=== PATIENT | female | born 1935 | race Caucasian/White ===

== ENCOUNTER 2022-04-09 20:35 | Inpatient (IN) | payer MEDICARE, OTHER, SELFPAY ==
--- NOTE | 2022-04-09 20:46 | ECG_ITS ---
[facility] Test Date: 2022-04-09 Pat Name: Lauren Peguero Department: Room: ICU10 Gender: Female Case Planner: : 1935 Requested By: Eladio Cordova Order Number: [id number] Acuña MD: Kenny Palumbo M.D. Measurements Intervals [place] Rate: 154 P: GA: QRS: -45 QRSD: 142 T: 133 QT: 318 QTc: 509 Interpretive Statements ATRIAL FIBRILLATION WITH RAPID VENTRICULAR RESPONSE LEFT AXIS DEVIATION [QRS AXIS < -30] LEFT BUNDLE BRANCH BLOCK [120+ ms QRS DURATION, 80+ ms Q/S IN V1/V2, 85+ ms R IN I/aVL/V5/V6] No previous ECG available for comparison Electronically Signed On 04-11-2022 22:08:21 CDT by Kenny Palumbo M.D. [id number]
--- NOTE | 2022-04-09 20:46 | ECG_ITS ---
[facility] Test Date: 2022-04-09 Pat Name: Lauren Peguero Department: Room: Gender: Female Aperture Mask Etcher: : 1935 Requested By: Eladio Cordova Order Number: [id number] Domenico MD: Kenny Palumbo M.D. Measurements Intervals [place] Rate: 154 P: ND: QRS: -45 QRSD: 142 T: 133 QT: 318 QTc: 509 Interpretive Statements ATRIAL FIBRILLATION WITH RAPID VENTRICULAR RESPONSE LEFT AXIS DEVIATION [QRS AXIS < -30] LEFT BUNDLE BRANCH BLOCK [120+ ms QRS DURATION, 80+ ms Q/S IN V1/V2, 85+ ms R IN I/aVL/V5/V6] CRITICAL TEST RESULT No previous ECG available for comparison Electronically Signed On 04-11-2022 22:04:21 CDT by Kenny Palumbo M.D. [id number] f
--- NOTE | 2022-04-09 20:48 | XRR_ITS ---
PROCEDURE INFORMATION: Exam: XR Chest Exam date and time: 04/09/2022 9:41 PM Age: 87 years old Clinical indication: Shortness of breath; Patient HX: C/O SOB. History of covid in February. TECHNIQUE: Imaging protocol: Radiologic exam of the chest. Views: 1 view. COMPARISON: No relevant prior studies available. FINDINGS: Lungs: The upper lobes are clear. Pleural spaces: See Heart/Mediastinum finding. Heart/Mediastinum: Moderate to large bilateral symmetric pleural effusions obscure the diaphragms and heart borders. Bones/joints: Incidental right shoulder arthroplasty. XR/XR chest 1V portable [id number] IMPRESSION: Bilateral moderate to large pleural effusions.
[2022-04-09 20:54] VITALS: BP 122/75; PULSE 154; RESP 34; TEMP 36.6; O2SAT 78; BMI 33.5
[2022-04-09 20:57] VITALS: O2SAT 95
[2022-04-09 20:58] LABS: Basophils % 0.1 %; Eosinophils % 0.2 %; Hematocrit 38.5 % (37.0-47.0); Hemoglobin 11.8 g/dL (11.5-15.3); Lymphocytes # 1.2 10^3/uL (0.8-4.8); Lymphocytes % 7.2 %; Mean Corpuscular HGB Conc 30.6 g/dL (30.0-36.0); Mean Corpuscular Hemoglobin 29.6 pg (28.0-34.0); Mean Corpuscular Volume 96.7 fl (81-99); Mean Platelet Volume 10.6 fL (7.4-10.4); Monocytes # 4.9 10^3/uL (0.2-0.9); Monocytes % 28.6 %; Neutrophils # 10.66 10^3/uL (1.8-7.7); Neutrophils % 61.9 %; Nucleated Red Blood Cells % 0 %; Platelet Count 341 10^3/cmm (130-400); Red Blood Count 3.98 10^6/uL (4.1-5.3); Red Cell Distribution Width 13.8 % (12.1-15.1); White Blood Count 17.3 10^3/uL (4.0-10.0)
[2022-04-09 21:10] LABS: D Dimer 3.73 ug/mIFEU (0-0.59)
[2022-04-09 21:11] LABS: ABG PH Result 7.31 (7.35-7.45); Arterial Blood Gas Hematocrit 38.1 % (37-47); Base Excess ABG 3.8 mmol/L (-2.0-2.0); Blood Gas Allen Test Pos; Blood Gas Sample Type Arterial; Carboxyhemoglobin 0.1 %THgb (0.4-20.1); HCO3 ABG 31.6 mmol/L (22-26); HGB O2 Sat 93.9 % (95-100); Methemoglobin 0.8 % (0.4-1.5); PO2 ABG 94.3 mmHg (80.0-100.0); Total Hemoglobin 12.4 g/dL (12-16)
[2022-04-09 21:12] LABS: Blood Gas Operator Identificat MONRO; Blood Gas Sample Site Radial, right; Oxygen Device NRB
[2022-04-09] MEDS: dilTIAZem 5 mg/mL SDV 5 mL 15 MG IVP (21:12)
[2022-04-09] MEDS: sodium chloride 0.9% 500 ML 999 ML IV (21:12)
[2022-04-09 21:13] LABS: ABG PCO2 62.3 mmHg (35-45)
[2022-04-09 21:15] LABS: Lactic Sepsis W/Reflex 1.4 mmol/L (0.5-2.2)
[2022-04-09 21:18] LABS: Blood Urea Nitrogen 19 mg/dL (8-23); Calcium 8.4 mg/dL (8.5-10.5); Carbon Dioxide 28 mmol/L (22-29); Chloride 93 mmol/L (98-107); Glucose 229 mg/dL (65-115); Magnesium 2.1 mg/dL (1.7-2.3); Osmolality Calculated 288 mOsm/kg (285-295); Sodium 134 mmol/L (136-145)
[2022-04-09 21:19] LABS: Anion Gap 17.3 (5-19); Potassium 4.3 mmol/L (3.5-5.1); Troponin(5th) Baseline 16 ng/L (0-10)
[2022-04-09 21:20] VITALS: PULSE 120; RESP 30; O2SAT 95
[2022-04-09 21:26] LABS: NT Pro B Type Natriuretic Pept 2640 pg/mL (0-450)
--- NOTE | 2022-04-09 21:59 | CTR_ITS ---
PROCEDURE INFORMATION: Exam: CTA Chest With Contrast Exam date and time: 04/09/2022 11:51 PM Age: 87 years old Clinical indication: Shortness of breath; Additional info: SOB TECHNIQUE: Imaging protocol: Computed tomographic angiography of the chest with contrast. 3D rendering (Not supervised by radiologist): MIP and/or 3D reconstructed images were created by the technologist. Radiation optimization: All CT scans at this facility use at least one of these dose optimization techniques: automated exposure control; mA and/or kV adjustment per patient size (includes targeted exams where dose is matched to clinical indication); or iterative reconstruction. Contrast material: OMNIPAQUE 350; Contrast volume: 95 ml; Contrast route: INTRAVENOUS (IV); COMPARISON: CR (CHEST, ) 04/09/2022 9:41 PM RADIATION DOSE METRICS: Total DLP (mGy-cm): 561.4 FINDINGS: Pulmonary arteries: No pulmonary embolus or aortic dissection. Aorta: Calcification of the thoracic aorta and/or great vessels consistent with atherosclerotic vessel disease. Lungs: Compressive atelectasis in both lower lobes and portions of the right middle lobe. Pleural spaces: Moderate bilateral pleural fluid collections. Bilateral apical pleural and/or parenchymal scarring. Heart: Mild to moderate pericardial fluid and/or thickening. Lymph nodes: Calcified right hilar nodes and/or mediastinal nodes and/or lung granulomas consistent with old granulomatous disease. Bones/joints: Possible ankylosing spondylitis with bridging lateral vertebral body ossifications and ossification of the supraspinous ligament. Soft tissues: Examination is limited by artifact from one or both arms by the patient's side. CT/CT angio chest PE protcl [id number] IMPRESSION: 1. Moderate bilateral pleural fluid collections. 2. Mild to moderate pericardial fluid and/or thickening. 3. Compressive atelectasis in both lower lobes and portions of the right middle lobe. 4. No pulmonary embolus or aortic dissection.
[2022-04-09 23:27] LABS: Troponin 5 2HR 17.16 ng/L (0-10); Troponin 5 2HR Delta 1.16 ABS# (0-10)
--- NOTE | 2022-04-09 23:43 | W.ED.SOB ---
HPI - SOB/Dyspnea General: Chief Complaint: Shortness of Breath/Dyspnea Stated Complaint: SOB Time Seen by Provider: 04/09/22 20:43 Source: patient and EMS History of Present Illness: HPI Narrative: 87-year-old female presenting with shortness of breath lasting for the last 2 days. It is progressively worsened. She has had a cough. Nonproductive. She does not know that she has had a fever. She denies any chest pain. She has a history of atrial fibrillation. No history of coronary disease. MD elicited complaint: shortness of breath Pertinent past history: other Onset (ago): day(s) Context: recent illness Timing: progressively worsening Severity: severe Exacerbating factors: lying flat and exertion Relieving factors: nothing Associated symptoms: Reports cough, diaphoresis and nausea; Deny abdominal pain, chest congestion or chest pain Treatment prior to arrival: oxygen and bronchodilator Review of Systems Const: Reports: diaphoresis Eyes: Denies: change in vision ENMT: Denies: throat pain Card: Denies: chest pain Resp: Denies: chest congestion GI: Reports: nausea; Denies: abdominal pain Physical Exam Const: GENERAL APPEARANCE: in distress, ill appearing and diaphoretic HENMT: COMMON NORMALS: normocephalic, atraumatic and Normal external nose present HEAD & SCALP: normocephalic and atraumatic FACE & SINUS: normal facial exam and face symmetric NOSE: Normal external nose present Eye: COMMON NORMALS: Equal, round and reactive pupils present and EOMs intact bilaterally PUPIL: Yes Equal, round and reactive pupils present Chest: CHEST: Yes Symmetrical chest wall rise Resp: EFFORT & INSPECTION: Yes respiratory distress and Yes labored AUSCULTATION: rales, rhonchi and diminished lung sounds Cardio: RATE: tachycardic RHYTHM: abnormal rhythm irregularly irregular GI: COMMON NORMALS: Normal to inspection, nondistended, normoactive bowel sounds present and Soft to palpation PALPATION: Yes Soft to palpation Extremity: GENERAL: Yes edema Neuro: SHAN COMA SCALE: document GCS findings Shan coma scale eye opening: Spontaneous [place] coma scale verbal response: Orientated Shan coma scale motor response: Obey commands [place] coma scale total score: 15 Psych: COMMON NORMALS: cooperative Course Vital Signs: Vital signs: Vital Signs Temperature 97.8 F 04/09/22 20:54 Pulse Rate 114 H 04/10/22 00:10 Respiratory Rate 34 H 04/09/22 20:54 Blood Pressure 122/75 04/09/22 20:54 Pulse Oximetry 94 04/10/22 00:10 Oxygen Delivery Me thod 04/10/22 00:59 Oxygen Flow Rate 15 04/09/22 20:57 Fraction of Inspir ed Oxygen 80 04/10/22 00:10 MDM - SOB/Dyspnea Medical Decision Making 87-year-old female in hypoxic respiratory failure on arrival. She was placed on BiPAP. Initial blood gas shows respiratory acidosis with a high PCO2. Patient experienced immediate improvement after placement on BiPAP. Her heart rate was also in the 160s. She is placed on a diltiazem drip with improvement in her rapid ventricular response to the 1 teens. Her white blood cell count is 17.3. Hemoglobin 11.8. Her creatinine is 1. Her chest x-ray shows significant bilateral pleural effusions and cardiomegaly. Her D-dimer is significantly elevated. CTA of the chest reveals no pulmonary emboli. It does show pleural effusions, compressive atelectasis, and a likely pericardial effusion. She will go to the ICU. Lab Data : 04/09/22 20:50 04/09/22 20:50 Labs/Radiology: Radiology Impressions Chest X-Ray 04/09/22 20:48 IMPRESSION: Bilateral moderate to large pleural effusions. Chest CTA 04/09/22 21:59 IMPRESSION: 1. Moderate bilateral pleural fluid collections. 2. Mild to moderate pericardial fluid and/or thickening. 3. Compressive atelectasis in both lower lobes and portions of the right middle lobe. 4. No pulmonary embolus or aortic dissection. Laboratory Results WBC 17.3 10^3/uL (4.0-10.0) H 04/09/22 20:50 RBC 3.98 10^6/uL (4.1-5.3) L 04/09/22 20:50 Hgb 11.8 g/dL (11.5-15.3) 04/09/22 20:50 Hct 38.5 % (37.0-47.0) 04/09/22 20:50 MCV 96.7 fl (81-99) 04/09/22 20:50 MCH 29.6 pg (28.0-34.0) 04/09/22 20:50 MCHC 30.6 g/dL (30.0-36.0) 04/09/22 20:50 RDW 13.8 % (12.1-15.1) 04/09/22 20:50 Plt Count 341 10^3/cmm (130-400) 04/09/22 20:50 MPV 10.6 fL (7.4-10.4) H 04/09/22 20:50 Neut % (Auto) 61.9 % 04/09/22 20:50 Lymph % (Auto) 7.2 % 04/09/22 20:50 [place] % (Auto) 28.6 % 04/09/22 20:50 Eos % (Auto) 0.2 % 04/09/22 20:50 Baso % (Auto) 0.1 % 04/09/22 20:50 Neut # (Auto) 10.66 10^3/uL (1.8-7.7) H 04/09/22 20:50 Lymph # (Auto) 1.2 10^3/uL (0.8-4.8) 04/09/22 20:50 [place] # (Auto) 4.9 10^3/uL (0.2-0.9) H 04/09/22 20:50 Eos # (Auto) 0.0 10^3/uL (0.0-0.8) 04/09/22 20:50 Baso # (Auto) 0.0 10^3/uL (0.0-0.1) 04/09/22 20:50 Nucleated RBC % (auto) 0 % 04/09/22 20:50 Nucleated RBCs # 0.0 /100WBC 04/09/22 20:50 D-Dimer 3.73 ug/mIFEU (0-0.59) H 04/09/22 20:50 Specimen Type Arterial 04/09/22 20:48 Sample Site Radial, right 04/09/22 20:48 ABG pH 7.31 (7.35-7.45) L 04/09/22 20:48 ABG pCO2 62.3 mmHg (35-45) H* 04/09/22 20:48 ABG pO2 94.3 mmHg (80.0-100.0) 04/09/22 20:48 ABG HCO3 31.6 mmol/L (22-26) H 04/09/22 20:48 ABG Base Excess 3.8 mmol/L (-2.0-2.0) H 04/09/22 20:48 Damian Test Pos 04/09/22 20:48 Hematocrit 38.1 % (37-47) 04/09/22 20:48 Hgb O2 Saturation 93.9 % (95-100) L 04/09/22 20:48 Carboxyhemoglobin 0.1 %THgb (0.4-20.1) L 04/09/22 20:48 Methemoglobin 0.8 % (0.4-1.5) 04/09/22 20:48 Total Hemoglobin 12.4 g/dL (12-16) 04/09/22 20:48 O2 Delivery Device Nrb 04/09/22 20:48 O2 Liters/Min 15.0 % 04/09/22 20:48 FiO2 100.0 % 04/09/22 20:48 Head Of Stock ID Monro 04/09/22 20:48 Sodium 134 mmol/L (136-145) L 04/09/22 20:50 Potassium 4.3 mmol/L (3.5-5.1) 04/09/22 20:50 Chloride 93 mmol/L (98-107) L 04/09/22 20:50 Carbon Dioxide 28 mmol/L (22-29) 04/09/22 20:50 Anion Gap 17.3 (5-19) 04/09/22 20:50 BUN 19 mg/dL (8-23) 04/09/22 20:50 Creatinine 1.0 mg/dL (0.5-0.9) H 04/09/22 20:50 GFR Calculation Not Reportable 04/09/22 20:50 Glucose 229 mg/dL (65-115) H 04/09/22 20:50 Calculated Osmolality 288 mOsm/kg (285-295) 04/09/22 20:50 Lactic Acid 1.4 mmol/L (0.5-2.2) 04/09/22 20:50 Calcium 8.4 mg/dL (8.5-10.5) L 04/09/22 20:50 Magnesium 2.1 mg/dL (1.7-2.3) 04/09/22 20:50 Troponin T Baseline 16 ng/L (0-10) H 04/09/22 20:50 Troponin T 120 Minute 17.16 ng/L (0-10) H 04/09/22 22:46 Delta Troponin T 1.16 ABS# (0-10) 04/09/22 22:46 NT-Pro-B Natriuret Pep 2640 pg/mL (0-450) H 04/09/22 20:50 Critical Care Time Critical Care Time: Critical Care Time: Yes Total Critical Care Time: 40 Attestation: This case had a high probability of a clinically significant, sudden, or life threatening deterioration of this patient's condition which required my full and direct attention, intervention and personal management. Time is independent of any procedures performed. Discharge Plan Discharge Patient Disposition: Admitted As Inpatient Admit Provider: Jann Virk Clinical Impression: Respiratory failure with hypoxia and hypercapnia, Atrial fibrillation with RVR, Bilateral pleural effusion Condition: Stable Coding Level of Care Code ED Hot Dip Plating Supervisor for Chg Fwd Exam Comprehensive
[2022-04-10] VITALS (245 sets, daily range): BP systolic 73–144; BP diastolic 47–100; PULSE 80–130; RESP 19–34; TEMP 36.4; O2SAT 86–96
[2022-04-10] MEDS: iohexol 350 mg/mL 100 mL Btl IV (00:02)
--- NOTE | 2022-04-10 00:38 | USCV_ITS ---
Young, Lauren Age: 87 Gender: F : 1935 Exam Date: 04/10/2022 00:57 Ordering Phys: Jann Virk MD Technologist: Melissa Holloway Exam Location: [facility] [place] Indication: SOB BP: 97 / 62 HR: 101 Rhythm: Sinus Technical Quality: Suboptimal MEASUREMENTS (Male / Female) Normal Values 2D ECHO LV Diastolic Diameter PLAX 2.6 cm 4.2 - 5.9 / 3.9 - 5.3 cm LV Systolic Diameter PLAX 1.9 cm LV Chamber Size 3.1 cm IVS Diastolic Thickness 1.2 cm 0.6 - 1.0 / 0.6 - 0.9 cm IVS Systolic Thickness 1.6 cm LVPW Diastolic Thickness 1.9 cm 0.6 - 1.0 / 0.6 - 0.9 cm LVPW Systolic Thickness 1.4 cm RV Chamber Size 3.4 cm LVOT Diameter 2.1 cm LV Ejection Fraction 2D Teich 53.0 % LV Ejection Fraction MOD 2C 54.3 % LV Ejection Fraction 2C AL 57.4 % LA Diameter 2.6 cm LA Width 3.6 cm LA Height 3.8 cm RA Width 3.0 cm RA Height 3.5 cm Aorta at Sinotubular Diameter 2.9 cm M-MODE Aortic Annulus Diameter 3.0 cm LA Ao Ratio MM 0.8 MV E Point Septal Separation 0.9 cm DOPPLER AV Peak Velocity 135.0 cm/s LVOT Peak Velocity 48.0 cm/s AV Area Cont Eq vti 1.5 cm squared AV Area Cont Eq pk 1.2 cm squared MV Area PHT 5.0 cm squared MV E' Velocity 58.5 cm/s Mitral E to MV E' Ratio 16.0 Mitral E to LV E' Lateral Ratio 16.0 Mitral E to LV E' Septal Ratio 16.2 TR Peak Velocity 233.4 cm/s TR Peak Gradient 21.8 mmHg TR Mean Velocity 177.4 cm/s TR Mean Gradient 13.9 mmHg TR Velocity Time Integral 64.4 cm TV Peak E Velocity 62.0 cm/s Right Atrial Pressure 8.0 mmHg Pulmonary Artery Systolic Pressu 29.8 mmHg RV Acceleration Time 0.1 s RV Ejection Time 0.2 s RV AcT/ET 0.4 FINDINGS Left Ventricle Left ventricle is normal size. Grossly LV systolic function is normal. Regional wall motion abnormalities cannot be accurately assessed because of poor ultrasonic windows. Right Ventricle Normal in size and function Right Atrium Normal in size Left Atrium Normal in size Mitral Valve Grossly normal. Aortic Valve Aortic valve is thickened. Mild aortic regurgitation is seen. No significant stenosis is seen. Tricuspid Valve Mild tricuspid regurgitation. Pulmonary artery systolic pressure is normal. Pulmonic Valve Not well-visualized. Trace pulmonic regurgitation Pericardium Grossly normal. Small sized pericardial effusion is seen. Aorta Normal in size IVC CONCLUSIONS Technically limited quality echocardiogram because of poor ultrasonic windows. Grossly LV systolic function is normal. Aortic valve is thickened. Mild aortic regurgitation Mild tricuspid regurgitation Trace pulmonic regurgitation Small sized pericardial effusion No comparison studies are available Kenny Palumbo MD (Electronically Signed) Final Date: 10 April 2022 21:39 S
--- NOTE | 2022-04-10 00:42 | PM.HP ---
Providers/Chief Complaint Primary Care Provider: Mony Stark DO Chief Complaint: SOB History of Present Illness Lauren Peguero is a 87 year old female reports medical history of hypertension, diabetes, came in with chief complaint of worsening shortness of breath, going on for the last 2 days, she is also complaining of orthopnea and PND, worsening bilateral lower extremity swelling. She has denied any fever chills cough, chest pain ,nausea, vomiting. Upon arrival in the ER she was worked up for above-mentioned complaints: Pertinent imaging studies: CTA chest:Moderate bilateral pleural fluid collections. Mild to moderate pericardial fluid and/or thickening. Compressive atelectasis in both lower lobes and portions of the right middle lobe. No pulmonary embolus or aortic dissection. EKG A. fib with RVR, LBBB, LAD Pertinent labs: WBC 17.3, H&H:11/38 , PLT : 341 , serum sodium 134 , serum potassium 4.3 , BUN serum creatinine:19/1 , lactic acid 1.4 Troponin trend:16-17 proBNP:2640 , D-dimer 3.73 ABG: pH 7.31, PCO2 62, PO2 94 FiO2 100% Patient was placed on Cardizem drip in the ER, after receiving Cardizem bolus 15 milligrams x1 dose She also received 1 L normal saline bolus Review of Systems General: Reports: 10 or more systems reviewed and unremarkable except in HPI and below Const: Denies: fever(s), chills, body aches, change in appetite or diaphoresis Card: Reports: edema, swelling of feet/ankles, dyspnea on exertion and orthopnea; Denies: palpitations or leg pain with exertion Resp: Reports: dyspnea; Denies: productive cough, wheezing or pain on inspiration GI: Denies: abdominal pain, nausea, vomiting, diarrhea or constipation : Denies: flank pain Musc: Reports: extremity swelling; Denies: back pain or extremity pain Neuro: Denies: headache(s), difficulty walking or confusion Medications/Allergies Home Medications Medication Instructions Recorded Confirmed Last Taken Type alprazolam 0.25 mg tablet (Xanax) 0.25 mg PO TID PRN 03/02/22 03/02/22 Unknown History apple cider vinegar 300 mg tablet mg PO 03/02/22 03/02/22 Unknown History ascorbic acid (vitamin C) 500 mg mg PO 03/02/22 03/02/22 Unknown History capsule cholecalciferol (vitamin D3) 125 125 mcg PO DAILY 03/02/22 03/02/22 Unknown History mcg (5,000 unit) capsule dapagliflozin 5 mg tablet (Farxiga) 5 mg PO DAILY 03/02/22 03/02/22 Unknown History dextran 70-hypromellose 0.1 %-0.3 drp ophthalmic (eye) 03/02/22 03/02/22 Unknown History % eye drops diltiazem HCl 180 mg 180 mg PO DAILY 03/02/22 03/02/22 Unknown History capsule,extended release 24 hr (Cardizem CD) furosemide 20 mg tablet 20 mg PO DAILY 03/02/22 03/02/22 Unknown History gabapentin 100 mg capsule 100 mg PO BID 03/02/22 03/02/22 Unknown History ketoconazole 2 % topical cream 1 applic topical BID #60 grams 03/02/22 03/02/22 Unknown Rx levothyroxine 150 mcg tablet 150 mcg PO DAILY 03/02/22 03/02/22 Unknown History (Euthyrox) metformin 1,000 mg tablet 1,000 mg PO DAILY 03/02/22 03/02/22 Unknown History Allergies Allergy/AdvReac Type Severity Reaction Status Date / Time Penicillins Allergy ALGY-Rash Verified 03/02/22 14:08 PFSH Acute PFSH: Medical History (Updated 04/10/22 @ 11:59 by Jamari Lowry MD) Atrial fibrillation GERD (gastroesophageal reflux disease) Hypertension Hypothyroidism Neuropathy Type 2 diabetes mellitus Surgical History (Updated 04/10/22 @ 11:55 by Jamari Lowry MD) No pertinent past surgical history Vitals/I&O/Wt Last Vital Signs Temp 97.8 F 04/09/22 20:54 Pulse 114 H 04/10/22 00:10 Resp 34 H 04/09/22 20:54 BP 122/75 04/09/22 20:54 Pulse Ox 94 04/10/22 00:10 O2 Del Method 04/09/22 20:57 O2 Flow Rate 15 04/09/22 20:57 FiO2 80 04/10/22 00:10 04/09/22 04/09/22 04/10/22 14:59 22:59 06:59 Intake Total 503.333 / 503.333 Balance 503.333 / 503.333 Weight last 48 hrs Weight 88.451 kg Physical Exam Const: COMMON NORMALS: patient oriented x3 Resp: EFFORT & INSPECTION: Yes symmetric chest movement OTHER: B/L Crackles present in both lungs nguyen, diminished air entry B/L Cardio: COMMON NORMALS: No rub (Cardio) and Peripheral pulses 2+ throughout PERIPHERAL PULSES: Peripheral pulses 2+ throughout OTHER: Irregularly irregular rhythm, S1-S2 variable intensity GI: COMMON NORMALS: Normal to inspection, nondistended, normoactive bowel sounds present, Soft to palpation, non-tender, No hepatosplenomegaly present and no masses AUSCULTATION: Yes normoactive bowel sounds PALPATION: Yes Soft to palpation and Yes No hepatosplenomegaly present RECTAL EXAM: deferred Extremity: OTHER: 2 + B/L PITTING EDEMA Neuro: COMMON NORMALS: patient oriented x3 Data : 04/09/22 20:50 04/09/22 20:50 Micro: Microbiology 04/09/22 22:50 Blood Culture - Preliminary Blood SPECIMEN COLLECTED 04/09/22 22:46 Blood Culture - Preliminary Blood SPECIMEN COLLECTED A&P Assessment and plan (1) Hypertension: (2) Diabetes: (3) Respiratory failure with hypoxia and hypercapnia: (4) Bilateral pleural effusion: (5) Hypothyroidism: (6) Decompensated heart failure: (7) Atrial fibrillation with RVR: (8) LBBB (left bundle branch block): Plan 87 year old female reports medical history of hypertension, diabetes, came in with chief complaint of worsening shortness of breath, going on for the last 2 days, she is also complaining of orthopnea and PND, worsening bilateral lower extremity swelling. She has denied any fever chills cough, chest pain ,nausea, vomiting. Assessment: Respiratory failure with hypoxia and hypercapnia: Likely secondary to decompensated heart failure A. fib with RVR, bilateral pleural effusion Decompensated heart failure A. fib with RVR Possible pneumonia Left bundle branch block, no prior EKG to compare Trivial pericardial effusion Bilateral pleural effusion likely secondary to decompensated heart failure Hypertension Diabetes Plan: CTA chest:Moderate bilateral pleural fluid collections. Mild to moderate pericardial fluid and/or thickening. Compressive atelectasis in both lower lobes and portions of the right middle lobe. No pulmonary embolus or aortic dissection. Follow 2D echo Continue Lasix 60 IV 3 times daily Intake output charting Daily weight k>4 , mg>2 Continue Cardizem drip Continue Cardizem p.o. 60 every 6h On therapeutic anticoagulation with Lovenox Patient has left bundle branch block on EKG no prior EKG to compare, troponin trend is flat, patient currently denies any chest pain.We will continue with serial EKG monitoring Empirically on ceftriaxone azithromycin, follow-up procalcitonin. Lantus 20 units subcu daily LDSSI, monitor fingerstick glucose Continue DuoNebs Monitor ABG Monitor x-ray chest Possible thoracentesis Telemetry monitoring Continue BiPAP CODE STATUS: Full code DVT prophylaxis: Not needed on therapeutic anticoagulation Attestations Medical Necessity Statement*: Patient is to be in hospital for management of respiratory failure with hypoxia and hypercapnia.Anticipated length of stay greater than 2 midnights Time Spent in Patient Care: Greater than 35 minutes (>than 50% of time spent in counselling and/or direct pt care on unit). Coding Level of Care Code Acute Acoustical Tile Carpenters Supervisor for Chg Fwd Exam Expanded Problem Focused Diagnoses Hypertension I10 Diabetes E11.9 Respiratory failure with hypoxia and hypercapnia J96.91; J96.92 Bilateral pleural effusion J90 Hypothyroidism E03.9 Decompensated heart failure I50.9 Atrial fibrillation with RVR I48.91 LBBB (left bundle branch block) I44.7
[2022-04-10] MEDS: enoxaparin 100 mg/mL Syringe 90 MG SUBCUT ×3 (01:38→18:25)
[2022-04-10] MEDS: FUROsemide 10 mg/mL SDV 10mL 60 MG IVP (01:38)
[2022-04-10] MEDS: levalbuterol 1.25 mg/3 mL Neb INHALATION ×4 (02:12→20:16)
[2022-04-10] MEDS: ipratropium 0.5 mg/2.5 mL Neb INHALATION ×4 (02:13→20:17)
--- NOTE | 2022-04-10 02:49 | ECG_ITS ---
[facility] Test Date: 2022-04-10 Pat Name: Lauren Peguero Department: Room: ICU10 Gender: Female [place] Supervisor: : 1935 Requested By: Eladio Cordova Order Number: [id number] Acuña MD: Kenny Palumbo M.D. Measurements Intervals [place] Rate: 106 P: PA: QRS: -43 QRSD: 138 T: 131 QT: 373 QTc: 496 Interpretive Statements ATRIAL FIBRILLATION WITH RAPID VENTRICULAR RESPONSE LEFT AXIS DEVIATION [QRS AXIS < -30] INTRAVENTRICULAR CONDUCTION DELAY [130+ ms QRS DURATION] Compared to ECG 04/09/2022 20:46:03 Intraventricular conduction delay now present Left bundle-branch block no longer present Electronically Signed On 04-11-2022 22:08:02 CDT by Kenny Palumbo M.D. [id number]
[2022-04-10] MEDS: azithromycin 500 MG in sodium chloride 0.9% 250 ML 250 MG IV (02:59)
[2022-04-10] MEDS: cefTRIAXone 1,000 MG in sodium chloride 0.9% (plus) 50 ML 100 MG IV (02:59)
[2022-04-10 03:58] LABS: Bilirubin Urine Negative (Negative); Blood Urine Negative (Negative); Glucose Urine UA Negative (Normal); Ketones Urine Negative (Negative); Leukocyte Esterase Urine Negative (Negative); Nitrate Urine Negative; Protein Urine 1+ (Negative); Specific Gravity, Urine >= 1.030 (1.005-1.030); Urine Appearance Clear (CLEAR); Urine Color Yellow (Yellow); Urobilinogen Urine 0.2 mg/dL (Negative); pH Urine 5.5 (5-7)
[2022-04-10 04:02] LABS: Add Urine Microscopic? YES
[2022-04-10 04:05] LABS: Add Urine Culture? No; Amorphous Sediment Urine TRACE /hpf; Bacteria Urine TRACE /hpf; Mucus Urine 2+ /hpf; RBC Urine 0-4 /hpf (0-2); Squamous Epithelial Cell Urine 0-4 /hpf (0-5); Uric Acid Crystals Urine 0-4 /hpf; WBC Urine 0-4 /hpf (0-5)
[2022-04-10 04:21] LABS: Troponin 5 6HR 18.22 ng/L (0-10)
[2022-04-10 04:24] LABS: Procalcitonin 0.14 ng/mL (0-0.5); Troponin 5 6HR Delta 2.22 ng/L (0-12)
[2022-04-10 04:42] LABS: ABG PCO2 50.5 mmHg (35-45); ABG PH Result 7.38 (7.35-7.45); Alveolar-Arterial Oxygen Gradi 56.7 mmHg (5-10); Arterial Blood Gas Hematocrit 34.1 % (37-47); Base Excess ABG 3.6 mmol/L (-2.0-2.0); Blood Gas Allen Test Pos; Blood Gas Operator Identificat MONRO; Blood Gas Sample Site Radial, right; Blood Gas Sample Type Arterial; Carboxyhemoglobin < 0.0 %THgb (0.4-20.1); HCO3 ABG 29.6 mmol/L (22-26); HGB O2 Sat 92.5 % (95-100); Methemoglobin 0.9 % (0.4-1.5); Oxygen Device BIPAP; Oxygen Saturation ABG 93.2; PO2 ABG 73.9 mmHg (80.0-100.0); Potassium Level - ABG 4.4 mmol/L (3.5-5.0); Total Hemoglobin 11.1 g/dL (12-16)
[2022-04-10] MEDS: sodium chloride 0.9% 250 ML 999 ML IV (05:44)
[2022-04-10 07:38] LABS: Glucose Point of Care 247 mg/dL (70-110)
[2022-04-10] MEDS: insulin lispro 100 unit/1 mL SUBCUT ×3 (08:28→18:26)
[2022-04-10] MEDS: levothyroxine 150 mcg Tablet PO (08:28)
[2022-04-10] MEDS: dilTIAZem 60 mg Tablet 30 MG PO (08:47)
--- NOTE | 2022-04-10 08:55 | PC.NURSE ---
Patient wearing Anti-Embolic stockings from home at this time. Verified keeping them in place with Dr. Lowry.
[2022-04-10] MEDS: FUROsemide 10 mg/mL SDV 2mL 20 MG IVP ×2 (09:28→20:24)
--- NOTE | 2022-04-10 11:51 | PM.PN ---
Subjective Subjective: Pressure today slightly better Patient is stating that she has chronic history of A. fib she has been off anticoagulating agent Does not have previous history of CHF as per the patient Waiting on echo to see the amount of epicardial fluid He is awake and alert on BiPAP able to talk Vitals/I&O/Wt Last Vital Signs Temp 97.6 F 04/10/22 07:30 Pulse 87 04/10/22 10:29 Resp 29 H 04/10/22 08:29 BP 99/69 04/10/22 09:10 Pulse Ox 93 04/10/22 10:29 O2 Del Method 04/10/22 09:10 O2 Flow Rate 15 04/09/22 20:57 FiO2 75 04/10/22 10:29 04/09/22 04/10/22 04/10/22 22:59 06:59 14:59 Intake Total 503.333 / 503.333 608.833 / 1112.166 Output Total 800 / 800 450 / 450 Balance 503.333 / 503.333 -191.167 / 312.166 -450 / -450 Weight last 48 hrs Weight 88.451 kg Physical Exam Narrative: Patient is on BiPAP Awake and alert Able to tell me Hemodynamically stable for now Heart sounds a bit distant I do not appreciate JVD blood pressure is stable Bilateral breath sounds which are assisted Clinical signs of fluid overload Abdomen soft Awake and alert Nonfocal neuro exam Urinary Catheter Management: Bonner: Cath Placed During This Visit: yes Reason for Continuing Indwelling Catheter: Accurate Measurement of Urinary Output in Critically Ill Patients Urinary Catheter Date of Insertion: 04/10/22 Urinary Catheter Time of Insertion: 02:14 Data : 04/09/22 20:50 04/09/22 20:50 Micro: Microbiology 04/09/22 22:50 Blood Culture - Preliminary Blood SPECIMEN COLLECTED 04/09/22 22:46 Blood Culture - Preliminary Blood SPECIMEN COLLECTED A&P Assessment and plan (1) LBBB (left bundle branch block): (2) Diabetes: (3) Respiratory failure with hypoxia and hypercapnia: (4) Bilateral pleural effusion: (5) Hypothyroidism: (6) Decompensated heart failure: (7) Atrial fibrillation with RVR: (8) Sepsis: Plan New onset CHF EF is unknown at this point, as per previous records there was no left ventricular systolic dysfunction She is na?ve to Lasix I have decreased the dose of IV Lasix for now Sepsis related to community-acquired pneumonia Sepsis present at admission Criteria met with tachypnea tachycardia and leukocytosis She is requiring oxygen Not a candidate for septic bolus because of CHF exacerbation Clinically she is fluid overloaded Acute hypercapnic hypoxic respite failure: Hypercapnia has improved on BiPAP Acute hypoxia related to CHF exacerbation Currently on BiPAP We will give her a break from BiPAP to let her eat A. fib RVR Hold Cardizem and start amiodarone drip Pericardial effusion Blood pressure stable for now no JVD Work-up with echo Community-acquired pneumonia Acute hypoxia Continue ceftriaxone and azithromycin DVT prophylaxis currently on therapeutic Lovenox Diabetes continue insulin sliding scale Hypothyroidism continue levothyroxine Full code Attestations Medical Necessity Statement*: Continue ICU management Time Spent in Patient Care: 40 Critical Care Time: 40 Coding Level of Care Code Acute Building Engineer for Chg Fwd Diagnoses LBBB (left bundle branch block) I44.7 Diabetes E11.9 Respiratory failure with hypoxia and hypercapnia J96.91; J96.92 Bilateral pleural effusion J90 Hypothyroidism E03.9 Decompensated heart failure I50.9 Atrial fibrillation with RVR I48.91 Sepsis A41.9
--- NOTE | 2022-04-10 12:01 | USR_ITS ---
PROCEDURE INFORMATION: Exam: US Duplex Lower Extremity Veins, Bilateral Exam date and time: 04/10/2022 12:40 PM Age: 87 years old Clinical indication: Swelling (edema) of limb; Lower extremity, bilateral TECHNIQUE: Imaging protocol: Real-time Duplex ultrasound of the bilateral extremities with 2-D partida scale, color Doppler flow and spectral waveform analysis with image documentation. Complete exam focused on the bilateral lower extremity veins. COMPARISON: No relevant prior studies available. FINDINGS: Right deep veins: Unremarkable. The common femoral, femoral, proximal profunda femoral, popliteal, posterior tibial and peroneal veins are patent without thrombus. Normal Doppler waveforms. Normal compressibility and/or augmentation response. Right superficial veins: Saphenofemoral junction is patent without thrombus. Left deep veins: Unremarkable. The common femoral, femoral, proximal profunda femoral, popliteal, posterior tibial and peroneal veins are patent without thrombus. Normal Doppler waveforms. Normal compressibility and/or augmentation response. Left superficial veins: Saphenofemoral junction is patent without thrombus. Soft tissues: Unremarkable. US/CV venous duplex [facility] [id number] IMPRESSION: No sonographic evidence of deep vein thrombosis.
[2022-04-10 12:04] LABS: Glucose Point of Care 157 mg/dL (70-110)
[2022-04-10 13:11] LABS: Thyroid Stimulating Hormone 2.43 uIU/mL (0.27-4.20)
[2022-04-10 14:48] LABS: Estmated Average Glucose 177; Hemoglobin A1C 7.8 % (4.0-6.0)
[2022-04-10] MEDS: LORazepam 0.5 mg Tablet PO (16:42)
[2022-04-10 17:46] LABS: Glucose Point of Care 219 mg/dL (70-110)
--- NOTE | 2022-04-10 19:08 | PC.NURSE ---
Code status discussed: This nurse discussed code status extensively with patient at approximately 0900. This nurse explained process of CPR and intubation to patient. Patient agreed she wants everything done. This nurse explained that she is listed as a Full code and everything will be done if the need should arise. Patient Daughter Jordyn, named DPOA today at bedside, stopped this nurse in the [place] at approximately 1740 insisting patient code status be changed to DNR. Patient daughter then insisted that since she is now DPOA she has the authority to change code status. This nurse explained DPOA to patient daughter. Throughout this shift this nurse witnessed this patient to be alert, oriented, and capable of making own decisions.
[2022-04-10 19:52] LABS: Glucose Point of Care 201 mg/dL (70-110)
[2022-04-10] MEDS: FUROsemide 10 mg/mL SDV 4mL 40 MG IVP (20:23)
[2022-04-10] MEDS: insulin glargine 100 units/1 mL 20 UNIT SUBCUT (20:24)
[2022-04-11] VITALS (89 sets, daily range): BP systolic 82–167; BP diastolic 55–118; PULSE 99–158; RESP 20–34; TEMP 36.5–36.7; O2SAT 84–96; BMI 33.5
[2022-04-11] MEDS: cefTRIAXone 1,000 MG in sodium chloride 0.9% (plus) 50 ML 100 MG IV (03:16)
[2022-04-11] MEDS: levalbuterol 1.25 mg/3 mL Neb INHALATION ×4 (03:25→20:26)
[2022-04-11] MEDS: ipratropium 0.5 mg/2.5 mL Neb INHALATION ×4 (03:25→20:27)
[2022-04-11 05:38] LABS: Basophils % 0.1 %; Eosinophils % 0.1 %; Hematocrit 34.9 % (37.0-47.0); Hemoglobin 10.4 g/dL (11.5-15.3); Lymphocytes # 0.9 10^3/uL (0.8-4.8); Lymphocytes % 9.3 %; Mean Corpuscular HGB Conc 29.8 g/dL (30.0-36.0); Mean Corpuscular Hemoglobin 29.1 pg (28.0-34.0); Mean Corpuscular Volume 97.5 fl (81-99); Mean Platelet Volume 10.7 fL (7.4-10.4); Monocytes # 2.6 10^3/uL (0.2-0.9); Monocytes % 26.5 %; Neutrophils # 6.16 10^3/uL (1.8-7.7); Neutrophils % 62.5 %; Nucleated Red Blood Cells % 0 %; Platelet Count 264 10^3/cmm (130-400); Red Blood Count 3.58 10^6/uL (4.1-5.3); Red Cell Distribution Width 13.8 % (12.1-15.1); White Blood Count 9.9 10^3/uL (4.0-10.0)
[2022-04-11 05:55] LABS: INR 1.24 (0.8-1.2)
[2022-04-11 05:56] LABS: Partial Thromboplastin Time 44.8 SECONDS (23.9-36.7)
[2022-04-11 06:08] LABS: Procalcitonin 0.22 ng/mL (0-0.5)
[2022-04-11 06:10] LABS: Alanine Aminotransferase 6 U/L (0-33); Albumin Level 2.9 g/dL (3.5-5.2); Alkaline Phosphatase 85 U/L (35-105); Anion Gap 14.7 (5-19); Aspartate Amino Transferase 8 U/L (0-32); Blood Urea Nitrogen 20 mg/dL (8-23); Calcium 7.8 mg/dL (8.5-10.5); Carbon Dioxide 31 mmol/L (22-29); Chloride 94 mmol/L (98-107); Chol HDL Ratio 2.84 mg/dL (0.0-4.40); Cholesterol 156 mg/dL (0-200); Globulin 3.2 g/dL (1.3-4.6); Glucose 134 mg/dL (65-115); HDL Cholesterol 55 mg/dL (60-100); LDL Cholesterol Calculated 84 mg/dL (50-129); LDL HDL Ratio 1.53 RATIO (0.00-3.22); Magnesium 2.1 mg/dL (1.7-2.3); Osmolality Calculated 287 mOsm/kg (285-295); Phosphorus 4.5 mg/dL (2.5-4.5); Potassium 3.7 mmol/L (3.5-5.1); Sodium 136 mmol/L (136-145); Total Bilirubin 0.2 mg/dL (0.15-1.2); Total Protein 6.1 g/dL (6.6-8.7); Triglycerides 85 mg/dL (0-150)
[2022-04-11 07:12] LABS: Glucose Point of Care 135 mg/dL (70-110)
[2022-04-11 07:24] LABS: Glucose Point of Care 129 mg/dL (70-110)
[2022-04-11] MEDS: azithromycin 250 mg Tablet 500 MG PO (08:48)
[2022-04-11] MEDS: FUROsemide 10 mg/mL SDV 2mL 20 MG IVP ×2 (08:49→20:00)
[2022-04-11] MEDS: levothyroxine 150 mcg Tablet PO (08:49)
[2022-04-11] MEDS: enoxaparin 100 mg/mL Syringe 90 MG SUBCUT ×2 (08:49→19:18)
[2022-04-11] MEDS: insulin glargine 100 units/1 mL 20 UNIT SUBCUT (08:50)
--- NOTE | 2022-04-11 09:00 | PC.NURSE ---
doctor here at this time . off bipap pt agree that she doenot want to be intubated and no cpr placed on l0 l nc at this time oral care done daughter in room at this time. heart rate increased to 140s
[2022-04-11] MEDS: lanolin oint 7 gm 1 APPLIC TOPICAL (09:06)
--- NOTE | 2022-04-11 11:21 | PM.PN ---
Subjective Subjective: No active chest pain Amnio drip to be transitioned to p.o. regimen She will be given digoxin Heart rate is still 120s to 140s She never required vasopressors She is DNR/DNI Vitals/I&O/Wt Last Vital Signs Temp 97.7 F 04/11/22 04:00 Pulse 133 H 04/11/22 09:16 Resp 26 H 04/11/22 09:16 BP 101/71 04/11/22 09:00 Pulse Ox 90 04/11/22 09:16 O2 Del Method 04/11/22 09:16 O2 Flow Rate 15 04/11/22 09:16 FiO2 65 04/11/22 08:00 04/10/22 04/11/22 04/11/22 22:59 06:59 14:59 Intake Total 448.758 / 685.758 50 / 735.758 200 / 200 Output Total 350 / 800 1000 / 1800 Balance 98.758 / -114.242 -950 / -1064.242 200 / 200 Weight last 48 hrs Weight 88.451 kg Weight 88.451 kg Physical Exam Narrative: Clinically she looks fluid overloaded Currently on 15 L high flow nasal cannula Bilateral breath sounds with crackles Abdomen soft distended Bilateral extremity severe edema Awake and alert Nonfocal neuro exam Urinary Catheter Management: Bonner: Cath Placed During This Visit: yes Reason for Continuing Indwelling Catheter: Accurate Measurement of Urinary Output in Critically Ill Patients Urinary Catheter Date of Insertion: 04/10/22 Urinary Catheter Time of Insertion: 02:14 Data : 04/11/22 04:55 04/11/22 04:55 Micro: Microbiology 04/10/22 02:35 Urine Culture - Preliminary Urine Catheterized 04/09/22 22:50 Blood Culture - Preliminary Blood NEGATIVE TO DATE 04/09/22 22:46 Blood Culture - Preliminary Blood NEGATIVE TO DATE A&P Assessment and plan (1) Sepsis: (2) LBBB (left bundle branch block): (3) Atrial fibrillation with RVR: (4) Decompensated heart failure: (5) Hypothyroidism: (6) Bilateral pleural effusion: (7) Respiratory failure with hypoxia and hypercapnia: (8) Diabetes: Plan Sepsis: Resolved Continue ceftriaxone and azithromycin Acute hypoxia requiring 15 L high flow cannula This is related to pneumonia and congestive heart failure exacerbation A. fib RVR Transition to p.o. amiodarone and digoxin TRUMAN likely cardiorenal Continue IV diuresis low-dose diuresis because of low blood pressure Acute diastolic congestive heart failure exacerbation Mild pericardial effusion No signs of cardiac tamponade Goals of care discussed with the patient she is DNR/DNI Cardiac diet Acute hypercapnia hypoxia she is requiring high flow oxygen for now tachypnea has resolved Diabetes insulin sliding scale Continue levothyroxine Attestations Medical Necessity Statement*: She can be transferred upstairs if not requiring vasopressors Time Spent in Patient Care: 40 Coding Level of Care Code Acute Director Employee Safety And Health for g Fwd Diagnoses Sepsis A41.9 LBBB (left bundle branch block) I44.7 Atrial fibrillation with RVR I48.91 Decompensated heart failure I50.9 Hypothyroidism E03.9 Bilateral pleural effusion J90 Respiratory failure with hypoxia and hypercapnia J96.91; J96.92 Diabetes E11.9
[2022-04-11] MEDS: digoxin 250 mcg/ml INJ 2 mL 500 MCG IVP (11:32)
[2022-04-11] MEDS: amiodarone 200 mg Tablet 400 MG PO ×2 (11:32→17:02)
[2022-04-11 11:39] LABS: Glucose Point of Care 231 mg/dL (70-110)
[2022-04-11] MEDS: insulin lispro 100 unit/1 mL SUBCUT (11:39)
[2022-04-11 12:10] LABS: D Dimer 3.32 ug/mIFEU (0-0.59)
[2022-04-11] MEDS: digoxin 250 mcg/ml INJ 2 mL 125 MCG IVP (17:01)
[2022-04-11 17:10] LABS: Glucose Point of Care 109 mg/dL (70-110)
[2022-04-11] MEDS: LORazepam 2 mg/mL oral liquid (mL) 1 MG PO (21:50)
[2022-04-12] VITALS (46 sets, daily range): BP systolic 87–121; BP diastolic 46–83; PULSE 77–138; RESP 18–32; TEMP 36.6–37.1; O2SAT 86–96; BMI 33.5
[2022-04-12] MEDS: cefTRIAXone 1,000 MG in sodium chloride 0.9% (plus) 50 ML 100 MG IV (02:04)
[2022-04-12 03:12] LABS: Hematocrit 37.2 % (37.0-47.0); Hemoglobin 11.8 g/dL (11.5-15.3); Mean Corpuscular HGB Conc 31.7 g/dL (30.0-36.0); Mean Corpuscular Hemoglobin 29.8 pg (28.0-34.0); Mean Corpuscular Volume 93.9 fl (81-99); Mean Platelet Volume 10.9 fL (7.4-10.4); Platelet Count 271 10^3/cmm (130-400); Red Blood Count 3.96 10^6/uL (4.1-5.3); Red Cell Distribution Width 13.8 % (12.1-15.1)
[2022-04-12] MEDS: ipratropium 0.5 mg/2.5 mL Neb INHALATION ×4 (03:18→20:10)
[2022-04-12] MEDS: levalbuterol 1.25 mg/3 mL Neb INHALATION ×4 (03:18→20:10)
[2022-04-12 03:36] LABS: Alanine Aminotransferase 8 U/L (0-33); Alkaline Phosphatase 97 U/L (35-105); Aspartate Amino Transferase 16 U/L (0-32); Blood Urea Nitrogen 23 mg/dL (8-23); Calcium 7.8 mg/dL (8.5-10.5); Carbon Dioxide 30 mmol/L (22-29); Chloride 92 mmol/L (98-107); Globulin 2.8 g/dL (1.3-4.6); Glucose 96 mg/dL (65-115); Magnesium 1.9 mg/dL (1.7-2.3); Osmolality Calculated 288 mOsm/kg (285-295); Sodium 137 mmol/L (136-145); Total Bilirubin 0.4 mg/dL (0.15-1.2); Total Protein 5.8 g/dL (6.6-8.7)
[2022-04-12 03:39] LABS: Slide Review Slide Review Perform
[2022-04-12 03:40] LABS: White Blood Count 43.3 10^3/uL (4.0-10.0)
[2022-04-12 03:45] LABS: Absolute Segmented Neutrophil 17.8 10/cmm (1.6-7.1); Band Neutrophils Absolute 9.5 10^3/cmm (0.0-1.2); Eosinophils 0 %; Lymphocytes 8 %; Lymphocytes Absolute 5.2 10^3/cmm (1.2-3.4); Monocytes Absolute 7.8 10^3/cmm (0.1-0.6); Segmented Neutrophils 41 %; Total Cells Counted 100 (0-100)
[2022-04-12 03:46] LABS: Absolute Neutrophil 27.3 10^3/cmm (1.4-6.5); Platelet Estimate Normal (Normal)
[2022-04-12 03:48] LABS: Anion Gap 18.4 (5-19); Potassium 3.4 mmol/L (3.5-5.1)
[2022-04-12 04:20] LABS: Basophils # 0.1 10^3/uL (0.0-0.1); Basophils % 0.3 %; Hematocrit 36.6 % (37.0-47.0); Hemoglobin 11.5 g/dL (11.5-15.3); Lymphocytes # 0.4 10^3/uL (0.8-4.8); Lymphocytes % 0.9 %; Mean Corpuscular HGB Conc 31.4 g/dL (30.0-36.0); Mean Corpuscular Hemoglobin 30.2 pg (28.0-34.0); Mean Corpuscular Volume 96.1 fl (81-99); Mean Platelet Volume 10.5 fL (7.4-10.4); Monocytes # 11.1 10^3/uL (0.2-0.9); Monocytes % 24.6 %; Neutrophils % 72.2 %; Nucleated Red Blood Cells % 0 %; Platelet Count 272 10^3/cmm (130-400); Red Blood Count 3.81 10^6/uL (4.1-5.3); Red Cell Distribution Width 13.8 % (12.1-15.1)
[2022-04-12 04:24] LABS: White Blood Count 45.3 10^3/uL (4.0-10.0)
--- NOTE | 2022-04-12 06:32 | XR_ITS ---
WS: [id number] XR chest 1V portable [id number] REASON FOR EXAM: sob FINDINGS: The chest is relatively unchanged compared to 04/09/2022. There is severe dorsal kyphosis of the thoracic spine and mild to moderate cardiomegaly. There are large bilateral pleural effusions. There is central venous congestion. XR/XR chest 1V portable [id number] IMPRESSION: Stable abnormal chest as above.
[2022-04-12 07:51] LABS: Glucose Point of Care 141 mg/dL (70-110)
[2022-04-12] MEDS: insulin lispro 100 unit/1 mL SUBCUT ×3 (08:01→17:02)
[2022-04-12] MEDS: lidocaine 1% 5 ML in potassium chloride premix 100 ML 50 ML IV (08:01)
--- NOTE | 2022-04-12 08:02 | US_ITS ---
WS: [id number] ULTRASOUND-GUIDED THORACENTESIS, RIGHT. HISTORY: Bilateral pleural effusions. Procedure, risks, and complications were explained to the patient. With the patient in an upright pos ition, the skin over the RIGHT posterior thorax was cleansed with ChloraPrep and anesthetized with 1% buffered lidocaine. A 5 [place] Yueh needle is inserted into the pleural fluid without complication. Approximately 1200 cc of light red pleural fluid is removed without difficulty. / thoracentesis [id number] IMPRESSION: 1. RIGHT thoracentesis yielding 1200 cc of fluid. 2. Chest radiograph to follow to evaluate for pneumothorax. 3. Pleural fluid specimen collected for analysis.
[2022-04-12] MEDS: levothyroxine 150 mcg Tablet PO (08:04)
--- NOTE | 2022-04-12 08:04 | CT_ITS ---
WS: [id number] CT CHEST, ABDOMEN, AND PELVIS TECHNIQUE: Noncontrast CT of the chest, abdomen, and pelvis with coronal and sagittal reformatted david ges. CLINICAL INFORMATION: hypoxia COMPARISON: CTA April 09, 2022 DLP: 1185.[address] scans at [facility] use at least one of these dose optimization techniques: automated e xposure control; mA and/or kV adjustment per patient size (includes targeted exams where dose is matc hed to clinical indication); or iterative reconstruction. CT CHEST: Improved RIGHT pleural effusion compared to previous. Small RIGHT pleural effusion with compressive a telectasis RIGHT lower lobe. Hazy groundglass infiltrates in the newly expanded RIGHT lower lobe may be due to pulmonary edema or pneumonitis. No pneumothorax. Pleural fluid along the RIGHT fissure. Small to moderate LEFT pleural effusion with compressive atelectasis LEFT lower lobe is unchanged sin ce April 09, 2022. Small pericardial effusion. Fibrosis in the lung apices normal caliber thoraci c aorta. No axillary lymphadenopathy. Moderate thoracic kyphosis with ankylosis. CT ABDOMEN AND PELVIS: Grade 1 anterolisthesis L4 on L5 with vacuum disc phenomenon. Normal noncontrast liver. Cholelithiasi s. Normal noncontrast spleen. Normal GE junction. Fatty atrophy of the pancreas. Adrenal glands are n ormal. LEFT renal cyst measuring 3.5 CM. Diffuse body wall anasarca. Smaller RIGHT renal cysts. Normal caliber abdominal aorta. Aortic calcification. Small amount of free fluid in the pelvis. Advanced degenerative arthritis both hips. Lumbar curve. CT/[place] [id number] IMPRESSION: 1. Improved RIGHT pleural effusion with a small amount of residual RIGHT pleur al fluid with compressive atelectasis RIGHT lower lobe. No pneumothorax. 2. Reexpansion RIGHT lower lobe with new hazy groundglass infiltrates. This is likely due to reexpansion pulmonary edema versus less likely developing pneumo nitis. 3. Stable small to moderate LEFT pleural effusion with compressive atelectasis LEFT lower lobe. 4. Small pericardial effusion. 5. Cholelithiasis. 6. Diffuse body wall anasarca. 7. Bonner catheter. 8. Slightly lobulated noncontrast uterine fundus is nonspecific. Patient repor herminia history of uterine cancer. This can be further evaluated with ultrasound if indicated. Notified Kauffman Alen, MD at 04/12/2022 1:39 PM.
[2022-04-12] MEDS: amiodarone 200 mg Tablet 400 MG PO ×2 (08:05→17:02)
[2022-04-12] MEDS: azithromycin 250 mg Tablet 500 MG PO (08:05)
[2022-04-12] MEDS: FUROsemide 10 mg/mL SDV 2mL 20 MG IVP (08:05)
[2022-04-12] MEDS: insulin glargine 100 units/1 mL 20 UNIT SUBCUT (08:26)
[2022-04-12] MEDS: digoxin 250 mcg Tablet PO (08:57)
--- NOTE | 2022-04-12 10:41 | XR_ITS ---
WS: [id number] PORTABLE CHEST HISTORY: RIGHT thoracentesis. COMPARISON: 04/12/2022 Marked improved aeration in the RIGHT lung with only very small residual pleural effusion. Small LEFT pleural effusion. Overall there is less pulmonary venous congestion throughout the chest. No pneumothorax. Cardiac size: Mildly enlarged cardiac silhouette. Mediastinum/Aorta: Mild atherosclerosis aorta. Degenerative changes at the glenohumeral joints. XR/XR chest 1V portable [id number] IMPRESSION: 1. Significantly improved RIGHT pleural effusion status post thoracentesis. No residual pleural effusion. 2. No RIGHT pneumothorax. 3. Small LEFT pleural effusion. 4. Improving pulmonary edema.
--- NOTE | 2022-04-12 10:42 | PC.CHAP ---
Pastoral Care Encounter/Spiritual Assessment Type of Contact [] Declined social work case manager visit [] Patient/Family/Request visit [] Outpatient visit [] Follow-up visit [] Physician referral [] Code/Alert [x] Routine visit [] Staff referral [] Actively dying [] Patient sleeping [x] Family support [] [] Out of room [] Palliative care [] [x] Receiving care in room [] Pre-surgical visit [] Trauma [] Long length of stay [x] ICU visit [] Other: Relational/Emotional Strength [] Patient feels connected with others/family/visitors/staff [] Distress [] Loneliness/isolation [] Abandonment Spirituality of Patient [] Person of Carmen [] Attends Hindu of their Carmen [] Believes in Prayer [] Reads Bible or Gnosticism materials [] There are Spiritual issues to be addressed Water Treatment Plant Supervisor Interventions [x] Prayer [] Active listening [] Non-anxious presence [] Spiritual/emotional support [] Crisis/trauma care [] Spiritual counseling [] Bereavement support [] Provided bereavement packet [] Provided Bible/devotional materials [] Provided toy/stuffed animal, coloring book to patient or family member [] Provided Communion [] Anointing/[place] [] Salvation [x] Completed spiritual assessment [] Other: Impact on Illness or Injury [] Angry [] Fearful [] Anxious [] Often cries [] Exhaustion [] Unable to work [] Unable to attend yarsani [] Unable to walk/stand [] Unable to read [] Unable to drive [] Unable to eat/drink [] Unable to sleep [] Unable to be with family [] Patient intubated [] Other: Summary Time spent with patient
--- NOTE | 2022-04-12 10:47 | PC.NURSE ---
Thorocentsis performed, removed 1L of fluid by Dr. Ramos
[2022-04-12 11:19] LABS: Cyto Order Verification Order Verified
[2022-04-12 11:22] LABS: Glucose Point of Care 141 mg/dL (70-110)
[2022-04-12 11:34] LABS: Mononuclear %, Pleural Fluid 79 %; Polynuclear Cells, Pleural # 0.138 10^3/uL; Polynuclear Cells, Pleural % 21 %
[2022-04-12 11:39] LABS: Appearance, Pleural Fluid CLEAR (CLEAR); Color, Pleural Fluid Amber (Pale Yellow)
[2022-04-12 12:06] LABS: LDH Pleural Fluid 158 U/L; Total Protein Pleural Fluid 3.7 g/dL
[2022-04-12 12:18] LABS: Left Pleural Fluid Analysis N
[2022-04-12 12:19] LABS: PATH Referral YES; Right Pleural Fluid Right Lung
--- NOTE | 2022-04-12 12:34 | P.PN_ITS ---
Subjective Subjective: Thoracentesis was done today 1200 cc removed from right pleural area BiPAP weaned off to 8 L high flow Patient is not endorsing any new symptoms Signs of congestive heart failure history of present Adequate diuresis Patient is stating that she has had 2 bowel movements during hospitalization, I told her about her significant leukocytosis and my indication for CT chest abdomen pelvis she is stating that she has history of uterine cancer and no hysterectomy was done Vitals/I&O/Wt Last Vital Signs Temp 98.7 F 04/12/22 04:00 Pulse 102 H 04/12/22 12:00 Resp 23 H 04/12/22 12:00 BP 91/62 04/12/22 12:00 Pulse Ox 88 L 04/12/22 12:00 O2 Del Method 04/12/22 09:10 O2 Flow Rate 15 04/11/22 20:27 FiO2 70 04/12/22 09:14 04/11/22 04/12/22 04/12/22 22:59 06:59 14:59 Intake Total 210 / 560 50 / 610 Output Total 800 / 1800 300 / 2100 Balance -590 / -1240 -250 / -1490 Weight last 48 hrs Weight 88.451 kg Weight 88.451 kg Physical Exam Narrative: Patient is awake alert Currently on 8 L high flow nasal cannula Able to eat No new events Sign of congestive heart failure Bilateral breath sounds with crackles Bilateral lower extremity significant edema Cushingoid appearance Urinary Catheter Management: Bonner: Cath Placed During This Visit: yes Reason for Continuing Indwelling Catheter: Accurate Measurement of Urinary Output in Critically Ill Patients Urinary Catheter Date of Insertion: 04/10/22 Urinary Catheter Time of Insertion: 02:14 Data : 04/12/22 04:12 04/12/22 02:47 Micro: Microbiology 04/10/22 02:35 Urine Culture - Final Urine Catheterized A&P Assessment and plan (1) Sepsis: (2) LBBB (left bundle branch block): (3) Atrial fibrillation with RVR: (4) Decompensated heart failure: (5) Leukocytosis: (6) Hypothyroidism: (7) Bilateral pleural effusion: (8) Respiratory failure with hypoxia and hypercapnia: (9) Diabetes: (10) Hypertension: Plan Sepsis related to community-acquired pneumonia Significant leukocytosis noted She has a been afebrile Cultures negative to date Requested CT chest abdomen pelvis to rule out Patient is endorsing history of uterine cancer Sepsis with acute hypoxic hypercarbic respiratory failure Secondary to pneumonia and CHF exacerbation Status post thoracentesis Currently on 8 L high flow Acute diastolic congestive heart exacerbation Continue low-dose Lasix because of low blood pressure A. fib RVR I have started on digoxin and amiodarone (Branch block left bundle, no active chest pain Troponin trending down TRUMAN cardiorenal: Improving DNR/DNI Patient might need intermediate placement Insulin sliding scale for hyperglycemia Continue levothyroxine Plan for left-sided thoracentesis tomorrow if he gets worse I will hold her therapeutic Lovenox for now Status post thoracentesis transudative in nature, no signs of pneumothorax postthoracentesis Attestations Medical Necessity Statement*: Continue ICU management Time Spent in Patient Care: 40 Coding Level of Care Code Acute Hand Candy Molder for Chg Fwd Diagnoses Sepsis A41.9 LBBB (left bundle branch block) I44.7 Atrial fibrillation with RVR I48.91 Decompensated heart failure I50.9 Leukocytosis D72.829 Hypothyroidism E03.9 Bilateral pleural effusion J90 Respiratory failure with hypoxia and hypercapnia J96.91; J96.92 Diabetes E11.9 Hypertension I10
[2022-04-12 16:13] LABS: Glucose Point of Care 163 mg/dL (70-110)
--- NOTE | 2022-04-12 17:47 | PC.NURSE ---
Tolerated being off bipap and on HF, reported easier time breathing and feeling better, daughter at bedside
--- NOTE | 2022-04-12 19:00 | PC.NURSE ---
Pt. laying in bed, comfortable. NO needs expressed at this time. FAmily at bedside.
--- NOTE | 2022-04-12 20:00 | PC.NURSE ---
Pt. right arm is very swollen and warm to the touch. Pt. states there is mild pain present but better than before. Iv in right arm flushes and draws blood appropriately. Will continue to watch arm closely. Iv started in left hand at this time.
[2022-04-12 21:12] LABS: Glucose Point of Care 175 mg/dL (70-110)
[2022-04-13] VITALS (31 sets, daily range): BP systolic 95–121; BP diastolic 47–75; PULSE 71–102; RESP 16–29; TEMP 36.7–37.3; O2SAT 91–96
[2022-04-13] MEDS: cefTRIAXone 1,000 MG in sodium chloride 0.9% (plus) 50 ML 100 MG IV (03:11)
[2022-04-13] MEDS: levalbuterol 1.25 mg/3 mL Neb INHALATION ×4 (03:12→20:36)
[2022-04-13] MEDS: ipratropium 0.5 mg/2.5 mL Neb INHALATION ×2 (03:12→08:44)
[2022-04-13 04:13] LABS: Basophils % 0.2 %; Hematocrit 30.8 % (37.0-47.0); Hemoglobin 9.6 g/dL (11.5-15.3); Lymphocytes # 0.9 10^3/uL (0.8-4.8); Lymphocytes % 3.7 %; Mean Corpuscular HGB Conc 31.2 g/dL (30.0-36.0); Mean Corpuscular Hemoglobin 30.4 pg (28.0-34.0); Mean Corpuscular Volume 97.5 fl (81-99); Mean Platelet Volume 10.5 fL (7.4-10.4); Monocytes # 5.1 10^3/uL (0.2-0.9); Monocytes % 20.5 %; Neutrophils # 18.69 10^3/uL (1.8-7.7); Neutrophils % 74.6 %; Nucleated Red Blood Cells % 0 %; Platelet Count 207 10^3/cmm (130-400); Red Blood Count 3.16 10^6/uL (4.1-5.3); Red Cell Distribution Width 14.1 % (12.1-15.1)
[2022-04-13 04:36] LABS: Alanine Aminotransferase < 5 U/L (0-33); Albumin Level 2.5 g/dL (3.5-5.2); Alkaline Phosphatase 89 U/L (35-105); Anion Gap 13.6 (5-19); Aspartate Amino Transferase 11 U/L (0-32); Blood Urea Nitrogen 23 mg/dL (8-23); Calcium 7.4 mg/dL (8.5-10.5); Carbon Dioxide 35 mmol/L (22-29); Chloride 93 mmol/L (98-107); Globulin 2.9 g/dL (1.3-4.6); Glucose 117 mg/dL (65-115); Osmolality Calculated 291 mOsm/kg (285-295); Potassium 3.6 mmol/L (3.5-5.1); Sodium 138 mmol/L (136-145); Total Bilirubin 0.3 mg/dL (0.15-1.2); Total Protein 5.4 g/dL (6.6-8.7)
[2022-04-13] MEDS: levothyroxine 150 mcg Tablet PO (07:56)
[2022-04-13] MEDS: LORazepam 0.5 mg Tablet PO (08:01)
[2022-04-13 08:55] LABS: Glucose Point of Care 132 mg/dL (70-110)
[2022-04-13] MEDS: FUROsemide 10 mg/mL SDV 2mL 20 MG IVP (09:14)
[2022-04-13] MEDS: digoxin 250 mcg Tablet PO (09:14)
[2022-04-13] MEDS: insulin glargine 100 units/1 mL 20 UNIT SUBCUT (09:14)
[2022-04-13] MEDS: azithromycin 250 mg Tablet 500 MG PO (09:14)
[2022-04-13] MEDS: amiodarone 200 mg Tablet 400 MG PO ×2 (09:14→17:44)
--- NOTE | 2022-04-13 10:46 | PC.CHAP ---
Pastoral Care Encounter/Spiritual Assessment Type of Contact [] Declined power lineman technician visit [] Patient/Family/Request visit [] Outpatient visit [] Follow-up visit [] Physician referral [] Code/Alert [x] Routine visit [] Staff referral [] Actively dying [] Patient sleeping [x] Family support [] [] Out of room [] Palliative care [] [x] Receiving care in room [] Pre-surgical visit [] Trauma [] Long length of stay [x] ICU visit [] Other: Relational/Emotional Strength [] Patient feels connected with others/family/visitors/staff [] Distress [] Loneliness/isolation [] Abandonment Spirituality of Patient [] Person of Carmen [] Attends Restorationist of their Carmen [] Believes in Prayer [] Reads Bible or Oriental Orthodox materials [] There are Spiritual issues to be addressed Bias Binding Folder Interventions [x] Prayer [] Active listening [] Non-anxious presence [] Spiritual/emotional support [] Crisis/trauma care [] Spiritual counseling [] Bereavement support [] Provided bereavement packet [] Provided Bible/devotional materials [] Provided toy/stuffed animal, coloring book to patient or family member [] Provided Communion [] Anointing/[place] [] Salvation [x] Completed spiritual assessment [] Other: Impact on Illness or Injury [] Angry [] Fearful [] Anxious [] Often cries [] Exhaustion [] Unable to work [] Unable to attend restorationism [] Unable to walk/stand [] Unable to read [] Unable to drive [] Unable to eat/drink [] Unable to sleep [] Unable to be with family [] Patient intubated [] Other: Summary Time spent with patient
[2022-04-13 12:28] LABS: Glucose Point of Care 205 mg/dL (70-110)
[2022-04-13] MEDS: insulin lispro 100 unit/1 mL SUBCUT (12:55)
--- NOTE | 2022-04-13 13:17 | PM.PN ---
Subjective Subjective: Pt can be transferred [facility] Pt feeling better on 8L high flow NC poor appetite adequate diuresis Vitals/I&O/Wt Last Vital Signs Temp 98.3 F 04/13/22 07:00 Pulse 89 04/13/22 11:00 Resp 20 H 04/13/22 11:00 BP 113/75 04/13/22 11:00 Pulse Ox 92 04/13/22 11:00 O2 Del Method 04/13/22 08:44 O2 Flow Rate 8 04/13/22 08:58 FiO2 70 04/12/22 09:14 04/12/22 04/13/22 04/13/22 22:59 06:59 14:59 Intake Total 200 / 200 Output Total 300 / 300 400 / 700 Balance -300 / 100 -400 / -300 200 / 200 Weight last 48 hrs Weight 92.079 kg Weight 88.451 kg Physical Exam Narrative: EOMI S1 S2 variable no rvr signs of chf improving abd soft non tender leg swelling improving currently on 8 L high flow NC awake and alert Urinary Catheter Management: Bonner: Cath Placed During This Visit: yes Reason for Continuing Indwelling Catheter: Accurate Measurement of Urinary Output in Critically Ill Patients Urinary Catheter Date of Insertion: 04/10/22 Urinary Catheter Time of Insertion: 02:14 Data : 04/13/22 03:05 04/13/22 03:05 Micro: Microbiology 04/10/22 02:35 Urine Culture - Final Urine Catheterized A&P Assessment and plan (1) Leukocytosis: (2) Sepsis: (3) LBBB (left bundle branch block): (4) Atrial fibrillation with RVR: (5) Decompensated heart failure: (6) Hypothyroidism: (7) Bilateral pleural effusion: (8) Respiratory failure with hypoxia and hypercapnia: (9) Diabetes: (10) Hypertension: Plan acute Hypoxia related to CHF exacerbation and pneumonia Continue diuresis Status post paracentesis we are able to wean her off BiPAP to 8 L high flow She can be transferred upstairs Her right arm looks very swollen we will request venous Doppler A. fib: Improved no RVR currently on amiodarone and digoxin Continue therapeutic Lovenox [facility] pneumonia afebrile leukocytosis noted, cultures negative so far Continue antibiotics DNR/DNI Will request PT/OT Transfer to [facility] Cardiac diet Attestations Medical Necessity Statement*: Continue medical management Time Spent in Patient Care: 30 Coding Level of Care Code Acute Senior Informatica Developer for Chg Fwd Diagnoses Leukocytosis D72.829 Sepsis A41.9 LBBB (left bundle branch block) I44.7 Atrial fibrillation with RVR I48.91 Decompensated heart failure I50.9 Hypothyroidism E03.9 Bilateral pleural effusion J90 Respiratory failure with hypoxia and hypercapnia J96.91; J96.92 Diabetes E11.9 Hypertension I10
--- NOTE | 2022-04-13 13:59 | USCV_ITS ---
Young, Lauren Age: 87 Gender: F : 1935 Exam Date: 04/13/2022 14:12 Ordering Phys: Jamari Lowry MD Technologist: MARY ANN [place] [facility] [place]ication: RUE SWELLING HISTORY: Upper extremity swelling. PROCEDURES: Venous duplex imaging was performed in only the right upper extremity. The following venous structures were evaluated: internal jugular vein, subclavian vein, axillary vein, and brachial veins. In addition, the basilic vein, cephalic vein, radial vein, and ulnar vein. Serial compression, augmentation maneuvers, and spectral Doppler flow evaluation were performed. FINDINGS: No evidence of deep vein thrombosis or superficial thrombophlebitis in the right upper extremity. CONCLUSIONS No evidence of thrombus of the right upper extremity veins. Gus Romo MD (Electronically Signed) Final Date: 13 April 2022 17:22 S
--- NOTE | 2022-04-13 16:01 | PC.SOCIAL ---
IMM Update pg 2 of IMM updated and reviewed w/ patient. Copy provided and Copy dated, initialed and placed in chart.
[2022-04-13 17:16] LABS: Glucose Point of Care 112 mg/dL (70-110)
[2022-04-13] MEDS: enoxaparin 100 mg/mL Syringe 90 MG SUBCUT (20:40)
[2022-04-13 22:08] LABS: Glucose Point of Care 490 mg/dL (70-110)
[2022-04-13 22:08] LABS: Glucose Point of Care 113 mg/dL (70-110)
[2022-04-14] VITALS (23 sets, daily range): BP systolic 95–140; BP diastolic 44–62; PULSE 59–72; RESP 17–30; TEMP 36.4–36.8; O2SAT 92–97
[2022-04-14] MEDS: levalbuterol 1.25 mg/3 mL Neb INHALATION ×4 (02:21→20:22)
[2022-04-14 03:48] LABS: Basophils % 0.1 %; Eosinophils % 0.1 %; Hematocrit 32.2 % (37.0-47.0); Hemoglobin 9.8 g/dL (11.5-15.3); Lymphocytes # 1.2 10^3/uL (0.8-4.8); Lymphocytes % 7.1 %; Mean Corpuscular HGB Conc 30.4 g/dL (30.0-36.0); Mean Corpuscular Volume 95.3 fl (81-99); Mean Platelet Volume 10.3 fL (7.4-10.4); Monocytes # 3.1 10^3/uL (0.2-0.9); Monocytes % 18.7 %; Neutrophils # 11.96 10^3/uL (1.8-7.7); Neutrophils % 72.8 %; Nucleated Red Blood Cells % 0 %; Platelet Count 196 10^3/cmm (130-400); Red Blood Count 3.38 10^6/uL (4.1-5.3); Red Cell Distribution Width 13.9 % (12.1-15.1); White Blood Count 16.4 10^3/uL (4.0-10.0)
[2022-04-14] MEDS: cefTRIAXone 1,000 MG in sodium chloride 0.9% (plus) 50 ML 100 MG IV (03:53)
[2022-04-14 04:10] LABS: Anion Gap 12.7 (5-19); Blood Urea Nitrogen 22 mg/dL (8-23); Calcium 7.8 mg/dL (8.5-10.5); Carbon Dioxide 37 mmol/L (22-29); Chloride 92 mmol/L (98-107); Glucose 75 mg/dL (65-115); Osmolality Calculated 288 mOsm/kg (285-295); Potassium 3.7 mmol/L (3.5-5.1); Sodium 138 mmol/L (136-145)
[2022-04-14 07:06] LABS: Glucose Point of Care 113 mg/dL (70-110)
[2022-04-14] MEDS: levothyroxine 150 mcg Tablet PO (07:30)
[2022-04-14] MEDS: enoxaparin 100 mg/mL Syringe 90 MG SUBCUT ×2 (07:30→19:57)
[2022-04-14] MEDS: amiodarone 200 mg Tablet 400 MG PO ×2 (08:32→17:49)
[2022-04-14] MEDS: azithromycin 250 mg Tablet 500 MG PO (08:32)
[2022-04-14] MEDS: FUROsemide 10 mg/mL SDV 2mL 20 MG IVP (08:33)
[2022-04-14] MEDS: digoxin 250 mcg Tablet PO (08:33)
[2022-04-14] MEDS: insulin glargine 100 units/1 mL 20 UNIT SUBCUT (09:08)
[2022-04-14] MEDS: diphenhydrAMINE 25 mg Capsule PO (09:52)
--- NOTE | 2022-04-14 10:42 | PC.CHAP ---
Pastoral Care Encounter/Spiritual Assessment Type of Contact [] Declined cuff knitter visit [] Patient/Family/Request visit [] Outpatient visit [] Follow-up visit [] Physician referral [] Code/Alert [x] Routine visit [] Staff referral [] Actively dying [] Patient sleeping [] Family support [] [] Out of room [] Palliative care [] [] Receiving care in room [] Pre-surgical visit [] Trauma [] Long length of stay [x] ICU visit [] Other: Relational/Emotional Strength [] Patient feels connected with others/family/visitors/staff [] Distress [] Loneliness/isolation [] Abandonment Spirituality of Patient [] Person of Carmen [] Attends Cheondoism of their Carmen [] Believes in Prayer [] Reads Bible or Rastafarian materials [] There are Spiritual issues to be addressed Lace Finisher Interventions [x] Prayer [] Active listening [] Non-anxious presence [] Spiritual/emotional support [] Crisis/trauma care [] Spiritual counseling [] Bereavement support [] Provided bereavement packet [] Provided Bible/devotional materials [] Provided toy/stuffed animal, coloring book to patient or family member [] Provided Communion [] Anointing/Continental Divide [] Salvation [x] Completed spiritual assessment [] Other: Impact on Illness or Injury [] Angry [] Fearful [] Anxious [] Often cries [] Exhaustion [] Unable to work [] Unable to attend taoism [] Unable to walk/stand [] Unable to read [] Unable to drive [] Unable to eat/drink [] Unable to sleep [] Unable to be with family [] Patient intubated [] Other: Summary Time spent with patient
[2022-04-14 11:24] LABS: Glucose Point of Care 127 mg/dL (70-110)
--- NOTE | 2022-04-14 12:59 | P.PN_ITS ---
Subjective Subjective: This morning she was endorsing feeling better We are waiting for PT OT and ST evaluation Leukocytosis trending down Afebrile Currently she is on 6 L high flow nasal cannula She can be discharged to longterm once accepted Creatinine improved Adequate diuresis Vitals/I&O/Wt Last Vital Signs Temp 98.2 F 04/14/22 07:00 Pulse 72 04/14/22 12:00 Resp 30 H 04/14/22 12:00 BP 140/56 04/14/22 12:00 Pulse Ox 95 04/14/22 12:00 O2 Del Method 04/14/22 09:00 O2 Flow Rate 6 04/14/22 09:00 FiO2 70 04/12/22 09:14 04/13/22 04/14/22 04/14/22 22:59 06:59 14:59 Intake Total 200 / 600 200 / 200 Output Total 150 / 750 300 / 1050 Balance 50 / -150 -300 / -450 200 / 200 Weight last 48 hrs Weight 91.172 kg Weight 92.079 kg Physical Exam Narrative: Still signs of fluid overload however improving Right arm is swollen no signs of DVT No signs of vascular compromise She had rotator cuff surgery Limited range of motion of right arm Lower extremity swelling has improved There was 1 blood blister below her left calf muscle however does not look infected Abdomen soft Bilateral breath sounds diminished Variable S1-S2 Urinary Catheter Management: Bonner: Cath Placed During This Visit: yes Reason for Continuing Indwelling Catheter: Accurate Measurement of Urinary Output in Critically Ill Patients Urinary Catheter Date of Insertion: 04/10/22 Urinary Catheter Time of Insertion: 02:14 Data : 04/14/22 03:33 04/14/22 03:33 A&P Assessment and plan (1) Sepsis: (2) LBBB (left bundle branch block): (3) Atrial fibrillation with RVR: (4) Decompensated heart failure: (5) Hypothyroidism: (6) Bilateral pleural effusion: (7) Respiratory failure with hypoxia and hypercapnia: (8) Diabetes: Plan Diastolic congestive heart failure exacerbation Acute hypoxia Continue antibiotic regimen Leukocytosis improved Sepsis resolving Afebrile Cultures negative Currently on 6 L high flow cannula switch to regular nasal cannula Continue diuresis Acute on chronic kidney disease cardiorenal in nature: Improving Right arm swelling no signs of DVT she had shoulder girdle surgery Limited range of motion is chronic I have asked her to do OT and massage A. fib without RVR currently on amiodarone I will switch her to Eliquis at the time of discharge Discontinue her ceftriaxone I would use Augmentin Continue levothyroxine Status post thoracentesis pleural effusion was transudative related to CHF She will need longterm placement Requested PT OT and ST Currently on dysphagia diet We have sent leukemia profile because of atypical cells found in pleural fluid DNR/DNI Attestations Medical Necessity Statement*: He can be transferred to [facility] She can be discharged to longterm placement once she gets accepted Time Spent in Patient Care: 40 Coding Level of Care Code Acute Patrol Officer for g Fwd Diagnoses Sepsis A41.9 LBBB (left bundle branch block) I44.7 Atrial fibrillation with RVR I48.91 Decompensated heart failure I50.9 Hypothyroidism E03.9 Bilateral pleural effusion J90 Respiratory failure with hypoxia and hypercapnia J96.91; J96.92 Diabetes E11.9
--- NOTE | 2022-04-14 15:00 | PC.NURSE ---
Report received from LY Angeles.. Care assumed.
[2022-04-14 17:36] LABS: Glucose Point of Care 109 mg/dL (70-110)
--- NOTE | 2022-04-14 19:05 | PC.NURSE ---
Bedside report completed with LY Steen.
--- NOTE | 2022-04-14 19:13 | PC.NURSE ---
Shift Note: Pt alert and oriented. Family very supportive at bedside throughout the shift. Sinus rhythm noted on monitor. VSS. Pt worked with PT/OT and speech therapy today. She is on a dysphagia diet, she did not care much for the dinner except for the mashed potatoes. She received Lasix today. urine output of 775ml this shift. Frequent safety and comfort rounds continue. Orders and/or nursing care completed as indicated. Patient monitored for response to intervention and treatment(s). Education provided includes amiodarone, progress and plan of care. Patient and/or call center support representative verbalized understanding of education and discussion provided. Will continue to monitor.
[2022-04-14 21:23] LABS: Glucose Point of Care 116 mg/dL (70-110)
--- NOTE | 2022-04-14 23:41 | PC.NURSE ---
[id number] patient notified of room number (250 - 2); report called to LY Oliveira
[2022-04-15] VITALS (9 sets, daily range): BP systolic 108–136; BP diastolic 63–76; PULSE 57–66; RESP 16–20; TEMP 36.6–36.7; O2SAT 92–96; BMI 34.4
--- NOTE | 2022-04-15 00:12 | PC.NURSE ---
2350 patient transported to room 250 - 2 via bed; family at bedside; patient tolerated well
[2022-04-15] MEDS: levalbuterol 1.25 mg/3 mL Neb INHALATION ×2 (01:50→07:49)
[2022-04-15 04:53] LABS: Basophils % 0.1 %; Hematocrit 31.4 % (37.0-47.0); Hemoglobin 9.6 g/dL (11.5-15.3); Lymphocytes # 0.9 10^3/uL (0.8-4.8); Lymphocytes % 8.1 %; Mean Corpuscular HGB Conc 30.6 g/dL (30.0-36.0); Mean Corpuscular Hemoglobin 29.4 pg (28.0-34.0); Mean Platelet Volume 10.7 fL (7.4-10.4); Monocytes # 1.9 10^3/uL (0.2-0.9); Monocytes % 17.6 %; Neutrophils # 7.81 10^3/uL (1.8-7.7); Neutrophils % 72.2 %; Nucleated Red Blood Cells % 0 %; Platelet Count 181 10^3/cmm (130-400); Red Blood Count 3.27 10^6/uL (4.1-5.3); Red Cell Distribution Width 13.8 % (12.1-15.1); White Blood Count 10.8 10^3/uL (4.0-10.0)
[2022-04-15 05:08] LABS: Blood Urea Nitrogen 20 mg/dL (8-23); Calcium 7.8 mg/dL (8.5-10.5); Carbon Dioxide 35 mmol/L (22-29); Chloride 95 mmol/L (98-107); Glucose 84 mg/dL (65-115); Osmolality Calculated 292 mOsm/kg (285-295); Sodium 140 mmol/L (136-145)
[2022-04-15 06:27] LABS: Glucose Point of Care 102 mg/dL (70-110)
[2022-04-15] MEDS: levothyroxine 150 mcg Tablet PO (06:40)
[2022-04-15 07:57] LABS: Leukemia Profile (BBPL) See Report; Lymphoma Profile (BBPL) See Report
[2022-04-15] MEDS: enoxaparin 100 mg/mL Syringe 90 MG SUBCUT (08:20)
[2022-04-15] MEDS: amiodarone 200 mg Tablet 400 MG PO (08:20)
[2022-04-15] MEDS: FUROsemide 40 mg Tablet PO (08:22)
[2022-04-15] MEDS: azithromycin 250 mg Tablet 500 MG PO (08:22)
[2022-04-15] MEDS: digoxin 250 mcg Tablet PO (08:22)
--- NOTE | 2022-04-15 09:11 | PM.DCS ---
Discharge Providers Date of Admission: 04/10/22 00:16 Date of Discharge: April 15, 2022 Attending Provider at Admission: Jann Virk MD Attending Provider at Discharge: Jamari Lowry MD Primary Care Provider: Mony Stark DO Diagnoses at Discharge Discharge Diagnosis (1) Sepsis: Status: Acute (2) LBBB (left bundle branch block): Status: Acute (3) Atrial fibrillation with RVR: Status: Acute (4) Decompensated heart failure: Status: Acute (5) Hypothyroidism: Status: Acute (6) Bilateral pleural effusion: Status: Acute (7) Respiratory failure with hypoxia and hypercapnia: Status: Acute (8) Diabetes: Status: Acute Reason for Visit Reason for Visit: SOB Hospital Course Hospital Course 87-year-old female who was admitted to the hospital on 04/10 for worsening shortness of breath she was diagnosed with acute on chronic hypoxic hypercapnic respiratory failure she required BiPAP for about 48 to 72 hours, thoracentesis was requested which made a significant difference(1200 mL removal from right pleural space) we were able to wean her off BiPAP to high flow nasal cannula and then transition to regular nasal cannula, she uses 2 L of oxygen at home and during hospitalization we were able to wean it down to 5 L. correction has been requested. She was treated for community-acquired pneumonia and diastolic congestive heart failure exacerbation during this hospitalization. She remained afebrile however her leukocytosis jumped above 40,000, we have sent leukemia cytology panel, her pleural effusion was related to CHF transudative in nature(pleural fluid showed smashed lymphocytes), she was also diagnosed with A. fib RVR, she will get Eliquis at the time of discharge, secondary to low blood pressure decision was made to start her on amiodarone drip and transition to p.o. amiodarone and digoxin. There is incomplete left bundle branch block on her EKG no active chest pain, troponins were not significantly high, she remained on therapeutic Lovenox throughout her hospitalization. No signs of PE or aortic dissection. She was diuresed aggressively with IV Lasix to keep her in negative balance. TRUMAN resolved which was related to cardiorenal. She is on dysphagia level 4 diet, no signs of aspiration , no signs of stroke she has limited range of motion of right arm because of rotator cuff surgery. She suffered from right arm swelling there was no DVT of right upper arm. With Occupational Therapy and arm massage swelling improved to some extent. At the time of discharge she will get Amiodarone, Eliquis, Lasix,, potassium supplement, digoxin lowest dose Physical Exam Narrative: Signs of fluid overload improving Right arm is swollen no signs of DVT No signs of vascular compromise of right arm She had rotator cuff surgery Limited range of motion of right arm Lower extremity swelling has improved significantly There was 1 blood blister below her left calf muscle however does not look infected Abdomen soft Bilateral breath sounds diminished I do not appreciate active wheezing Variable S1-S2 Awake and alert Nonfocal neuro exam Patient is extremely weak Urinary Catheter Management: Bonner: Cath Placed During This Visit: yes Reason for Continuing Indwelling Catheter: Accurate Measurement of Urinary Output in Critically Ill Patients Urinary Catheter Date of Insertion: 04/10/22 Urinary Catheter Time of Insertion: 02:14 Discharge Data Studies Completed and Pending Completed Studies During Hospitalization Category [place] [id number] Routine Cat Scan 04/12/22 08:04 Completed CTA chest [CT angio chest PE protcl [id number]] Stat Cat Scan 04/09/22 21:59 Completed CXRP [XR chest 1V portable [id number]] Stat Exams 04/12/22 10:41 Completed XR chest 1V portable [id number] Routine Exams 04/12/22 06:32 Completed XR chest 1V portable [id number] Stat Exams 04/09/22 20:48 Completed CV. echo complete* [id number] Routine Ultrasound 04/10/22 00:38 Completed US thoracentesis [id number] Routine Ultrasound 04/12/22 08:02 Completed US venous duplex lower extremity bilat [CV venous Ultrasound 04/10/22 12:01 [place] [id number]] Routine US venous duplex upper extremity RT [CV venous duplex Ultrasound 04/13/22 13:59 [place] [id number]] Routine Pending at discharge Category Date Time Status Arterial Blood Gas W/O Coox Stat Lab 04/11/22 13:20 Received Cytology [PTH] Routine Pth 04/12/22 10:40 Received Radiology Impressions Chest CTA 04/09/22 21:59 IMPRESSION: 1. Moderate bilateral pleural fluid collections. 2. Mild to moderate pericardial fluid and/or thickening. 3. Compressive atelectasis in both lower lobes and portions of the right middle lobe. 4. No pulmonary embolus or aortic dissection. Thoracentesis Ultrasound 04/12/22 08:02 IMPRESSION: 1. RIGHT thoracentesis yielding 1200 cc of fluid. 2. Chest radiograph to follow to evaluate for pneumothorax. 3. Pleural fluid specimen collected for analysis. Chest/Abdomen/Pelvis CT 04/12/22 08:04 IMPRESSION: 1. Improved RIGHT pleural effusion with a small amount of residual RIGHT pleural fluid with compressive atelectasis RIGHT lower lobe. No pneumothorax. 2. Reexpansion RIGHT lower lobe with new hazy groundglass infiltrates. This is likely due to reexpansion pulmonary edema versus less likely developing pneumonitis. 3. Stable small to moderate LEFT pleural effusion with compressive atelectasis LEFT lower lobe. 4. Small pericardial effusion. 5. Cholelithiasis. 6. Diffuse body wall anasarca. 7. Bonner catheter. 8. Slightly lobulated noncontrast uterine fundus is nonspecific. Patient reported history of uterine cancer. This can be further evaluated with ultrasound if indicated. Notified Jamari Lowry MD at 04/12/2022 1:39 PM. Chest X-Ray 04/12/22 10:41 IMPRESSION: 1. Significantly improved RIGHT pleural effusion status post thoracentesis. No residual pleural effusion. 2. No RIGHT pneumothorax. 3. Small LEFT pleural effusion. 4. Improving pulmonary edema. Laboratory Results WBC 10.8 10^3/uL (4.0-10.0) H 04/15/22 04:17 RBC 3.27 10^6/uL (4.1-5.3) L 04/15/22 04:17 Hgb 9.6 g/dL (11.5-15.3) L 04/15/22 04:17 Hct 31.4 % (37.0-47.0) L 04/15/22 04:17 MCV 96.0 fl (81-99) 04/15/22 04:17 MCH 29.4 pg (28.0-34.0) 04/15/22 04:17 MCHC 30.6 g/dL (30.0-36.0) 04/15/22 04:17 RDW 13.8 % (12.1-15.1) 04/15/22 04:17 Plt Count 181 10^3/cmm (130-400) 04/15/22 04:17 MPV 10.7 fL (7.4-10.4) H 04/15/22 04:17 Neut % (Auto) 72.2 % 04/15/22 04:17 Lymph % (Auto) 8.1 % 04/15/22 04:17 [place] % (Auto) 17.6 % 04/15/22 04:17 Eos % (Auto) 0.0 % 04/15/22 04:17 Baso % (Auto) 0.1 % 04/15/22 04:17 Neut # (Auto) 7.81 10^3/uL (1.8-7.7) H 04/15/22 04:17 Lymph # (Auto) 0.9 10^3/uL (0.8-4.8) 04/15/22 04:17 [place] # (Auto) 1.9 10^3/uL (0.2-0.9) H 04/15/22 04:17 Eos # (Auto) 0.0 10^3/uL (0.0-0.8) 04/15/22 04:17 Baso # (Auto) 0.0 10^3/uL (0.0-0.1) 04/15/22 04:17 Nucleated RBC % (auto) 0 % 04/15/22 04:17 Total Counted 100 (0-100) 04/12/22 02:47 Atypical Lymphs % 4.0 % (0-5) 04/12/22 02:47 Absolute Neutrophils 27.3 10^3/cmm (1.4-6.5) H 04/12/22 02:47 Segmented Neutrophils 41 % 04/12/22 02:47 Abs Segm Neuts (Man) 17.8 10/cmm (1.6-7.1) H 04/12/22 02:47 Band Neutrophils 22.0 % 04/12/22 02:47 Abs Band Neuts (Man) 9.5 10^3/cmm (0.0-1.2) H 04/12/22 02:47 Absolute Lymphocytes 5.2 10^3/cmm (1.2-3.4) H 04/12/22 02:47 Lymphocytes (Manual) 8 % 04/12/22 02:47 Monocytes (Manual) 18.0 % 04/12/22 02:47 Absolute Monocytes 7.8 10^3/cmm (0.1-0.6) H 04/12/22 02:47 Eosinophils (Manual) 0 % 04/12/22 02:47 Absolute Eosinophils 0.0 10^3/cmm (0.0-0.7) 04/12/22 02:47 Basophils (Manual) 0.0 % 04/12/22 02:47 Absolute Basophils 0.0 10^3/cmm (0.0-0.2) 04/12/22 02:47 Metamyelocytes 7.0 % 04/12/22 02:47 Nucleated RBCs # 0.0 /100WBC 04/15/22 04:17 Platelet Estimate Normal (Normal) 04/12/22 02:47 PT 15.90 SECONDS (12.1-14.9) H 04/11/22 04:55 INR 1.24 (0.8-1.2) H 04/11/22 04:55 APTT 44.8 SECONDS (23.9-36.7) H 04/11/22 04:55 D-Dimer 3.32 ug/mIFEU (0-0.59) H 04/11/22 04:55 Specimen Type Arterial 04/10/22 04:29 Sample Site Radial, right 04/10/22 04:29 ABG pH 7.38 (7.35-7.45) 04/10/22 04:29 ABG pCO2 50.5 mmHg (35-45) H 04/10/22 04:29 ABG pO2 73.9 mmHg (80.0-100.0) L 04/10/22 04:29 ABG HCO3 29.6 mmol/L (22-26) H 04/10/22 04:29 ABG O2 Saturation 93.2 04/10/22 04:29 ABG Base Excess 3.6 mmol/L (-2.0-2.0) H 04/10/22 04:29 Damian Test Pos 04/10/22 04:29 A-a O2 Gradient 56.7 mmHg (5-10) H 04/10/22 04:29 Hematocrit 34.1 % (37-47) L 04/10/22 04:29 Hgb O2 Saturation 92.5 % (95-100) L 04/10/22 04:29 Carboxyhemoglobin < 0.0 %THgb (0.4-20.1) L 04/10/22 04:29 Methemoglobin 0.9 % (0.4-1.5) 04/10/22 04:29 Total Hemoglobin 11.1 g/dL (12-16) L 04/10/22 04:29 Sodium 134.0 mmol/L (131-143) 04/10/22 04:29 Potassium 4.4 mmol/L (3.5-5.0) 04/10/22 04:29 Glucose 257.0 mg/dL (70-115) H 04/10/22 04:29 Ionized Calcium 1.0 mmol/L (1.1-1.4) L 04/10/22 04:29 O2 Delivery Device Bipap 04/10/22 04:29 O2 Liters/Min 15.0 % 04/09/22 20:48 FiO2 80.0 % 04/10/22 04:29 Street Light Repairer Helper ID [place] 04/10/22 04:29 Sodium 140 mmol/L (136-145) 04/15/22 04:17 Potassium 4.0 mmol/L (3.5-5.1) 04/15/22 04:17 Chloride 95 mmol/L (98-107) L 04/15/22 04:17 Carbon Dioxide 35 mmol/L (22-29) H 04/15/22 04:17 Anion Gap 14.0 (5-19) 04/15/22 04:17 BUN 20 mg/dL (8-23) 04/15/22 04:17 Creatinine 1.1 mg/dL (0.5-0.9) H 04/15/22 04:17 GFR Calculation Not Reportable 04/15/22 04:17 Glucose 84 mg/dL (65-115) 04/15/22 04:17 POC Glucose 102 mg/dL (70-110) 04/15/22 06:08 Estimat Average Glucose 177 04/09/22 20:50 Hemoglobin A1c 7.8 % (4.0-6.0) H 04/09/22 20:50 Calculated Osmolality 292 mOsm/kg (285-295) 04/15/22 04:17 Lactic Acid 1.4 mmol/L (0.5-2.2) 04/09/22 20:50 Calcium 7.8 mg/dL (8.5-10.5) L 04/15/22 04:17 Phosphorus 4.5 mg/dL (2.5-4.5) 04/11/22 04:55 Magnesium 2.0 mg/dL (1.7-2.3) 04/13/22 03:05 Total Bilirubin 0.3 mg/dL (0.15-1.2) 04/13/22 03:05 AST 11 U/L (0-32) 04/13/22 03:05 ALT < 5 U/L (0-33) 04/13/22 03:05 Alkaline Phosphatase 89 U/L (35-105) 04/13/22 03:05 Troponin T Baseline 16 ng/L (0-10) H 04/09/22 20:50 Troponin T 120 Minute 17.16 ng/L (0-10) H 04/09/22 22:46 Delta Troponin T 1.16 ABS# (0-10) 04/09/22 22:46 Troponin T Hi Sens 6Hr 18.22 ng/L (0-10) H 04/10/22 03:10 Troponin T Hi Sens 6Hr Delta 2.22 ng/L (0-12) 04/10/22 03:10 NT-Pro-B Natriuret Pep 2640 pg/mL (0-450) H 04/09/22 20:50 Total Protein 5.4 g/dL (6.6-8.7) L 04/13/22 03:05 Albumin 2.5 g/dL (3.5-5.2) L 04/13/22 03:05 Globulin 2.9 g/dL (1.3-4.6) 04/13/22 03:05 Triglycerides 85 mg/dL (0-150) 04/11/22 04:55 Cholesterol 156 mg/dL (0-200) 04/11/22 04:55 LDL Cholesterol, Calc 84 mg/dL (50-129) 04/11/22 04:55 HDL Cholesterol 55 mg/dL (60-100) L 04/11/22 04:55 LDL/HDL Ratio 1.53 RATIO (0.00-3.22) 04/11/22 04:55 Cholesterol/HDL Ratio 2.84 mg/dL (0.0-4.40) 04/11/22 04:55 Procalcitonin 0.22 ng/mL (0-0.5) 04/11/22 04:55 TSH 2.43 uIU/mL (0.27-4.20) 04/10/22 03:10 Urine Color Yellow (Yellow) 04/10/22 02:35 Urine Appearance Clear (CLEAR) 04/10/22 02:35 Urine pH 5.5 (5-7) 04/10/22 02:35 Ur Specific [place] >= 1.030 (1.005-1.030) 04/10/22 02:35 Urine Protein 1+ (Negative) A 04/10/22 02:35 Urine Glucose (UA) Negative (Normal) 04/10/22 02:35 Urine Ketones Negative (Negative) 04/10/22 02:35 Urine Blood Negative (Negative) 04/10/22 02:35 Urine Nitrate Negative 04/10/22 02:35 Urine Bilirubin Negative (Negative) 04/10/22 02:35 Urine Urobilinogen 0.2 mg/dL (Negative) 04/10/22 02:35 Ur Leukocyte Esterase Negative (Negative) 04/10/22 02:35 Urine RBC 0-4 /hpf (0-2) H 04/10/22 02:35 Urine WBC 0-4 /hpf (0-5) H 04/10/22 02:35 Ur Squamous Epith Cells 0-4 /hpf (0-5) H 04/10/22 02:35 Uric Acid Crystals 0-4 /hpf 04/10/22 02:35 Amorphous Sediment Trace /hpf 04/10/22 02:35 Urine Bacteria Trace /hpf (NONE) 04/10/22 02:35 Urine Mucus 2+ /hpf 04/10/22 02:35 Pleural Color Mita (Pale Yellow) H 04/12/22 10:40 Pleural Appearance Clear (CLEAR) 04/12/22 10:40 Pleural pH 7.50 (6.5-7.5) 04/12/22 10:40 Pleural WBC 648.000 /uL (0-1000) 04/12/22 10:40 Pleural RBC 15.000 10^3/uL 04/12/22 10:40 Pleural Mononuc # Auto 0.510 10^3/uL 04/12/22 10:40 Pleural Polynuclear % 21 % 04/12/22 10:40 Pleural Polynuclear # 0.138 10^3/uL 04/12/22 10:40 Pleural Mononuclear % 79 % 04/12/22 10:40 Pleural Other Cells Rt Right lung 04/12/22 10:40 Pleural Other Cells Lt N 04/12/22 10:40 Pleural Total Protein 3.7 g/dL 04/12/22 10:40 Pleural LDH 158 U/L 04/12/22 10:40 Pleural Glucose 128.0 mg/dL 04/12/22 10:40 Lymphoma Panel See report 04/12/22 10:40 Immunophenotype Interp See report 04/12/22 10:40 Pathology Message Yes 04/12/22 10:40 Vitals Last Vital Signs Temp 98.1 F 04/15/22 07:16 Pulse 60 04/15/22 07:58 Resp 20 H 04/15/22 07:50 BP 136/65 04/15/22 07:16 Pulse Ox 92 04/15/22 07:50 O2 Del Method 04/15/22 07:50 O2 Flow Rate 5 04/15/22 08:35 FiO2 70 04/12/22 09:14 Discharge Plan Discharge Patient Disposition: Xfer [facility] Condition: Stable Prescriptions: New albuterol sulfate 90 mcg/actuation HFA aerosol inhaler 2 inh inhalation Q8H PRN (Reason: shortness of breath or wheezing) Qty: 8.5 3RF Eliquis 5 mg tablet 5 mg PO BID Qty: 60 3RF digoxin [Digitek] 125 mcg (0.125 mg) tablet 62.5 mcg PO DAILY Qty: 60 0RF sitagliptin 50 mg tablet 50 mg PO DAILY Qty: 60 2RF amiodarone [Pacerone] 200 mg Tablet 200 mg PO DAILY Qty: 90 0RF furosemide 40 mg Tablet 40 mg PO DAILY@0800 Qty: 60 3RF potassium chloride 10 mEq tablet,ER particles/crystals 10 meq PO DAILY Qty: 60 1RF Continued gabapentin 100 mg capsule 100 mg PO BID alprazolam [Xanax] 0.25 mg tablet 0.25 mg PO BID PRN (Reason: Anxiety) levothyroxine [Euthyrox] 150 mcg tablet 150 mcg PO DAILY cholecalciferol (vitamin D3) 125 mcg (5,000 unit) capsule 125 mcg PO DAILY albuterol sulfate 2.5 mg /3 mL (0.083 %) Solution For Nebulization 2.5 mg INHALATION Q4H PRN (Reason: Shortness Of Breath) Xyzal 5 mg Tablet 5 mg PO DAILY Discontinued diltiazem HCl [Cardizem CD] 180 mg capsule,extended release 24hr 180 mg PO DAILY metformin 1,000 mg tablet 1,000 mg PO DAILY spironolactone 25 mg Tablet 25 mg PO DAILY Discharge Orders: Discharge Order (Routine); Ordered 04/15/22 Ordered By: Jamari Lowry Discharge Attestations Time Spent in Discharge Care*: less than 30 min Quality Metrics Clinical Quality Measures [ No reported AMI, CVA or VTE this stay] Coding Level of Care Code Acute Chg FW DC note Diagnoses Sepsis A41.9 LBBB (left bundle branch block) I44.7 Atrial fibrillation with RVR I48.91 Decompensated heart failure I50.9 Hypothyroidism E03.9 Bilateral pleural effusion J90 Respiratory failure with hypoxia and hypercapnia J96.91; J96.92 Diabetes E11.9
--- NOTE | 2022-04-15 09:23 | P.PN_ITS ---
Subjective Subjective: Patient is endorsing feeling better She is too weak on dysphagia diet No aspiration Afebrile No leukocytosis Adequate diuresis Vitals/I&O/Wt Last Vital Signs Temp 98.1 F 04/15/22 07:16 Pulse 60 04/15/22 07:58 Resp 20 H 04/15/22 07:50 BP 136/65 04/15/22 07:16 Pulse Ox 92 04/15/22 07:50 O2 Del Method 04/15/22 07:50 O2 Flow Rate 5 04/15/22 08:35 FiO2 70 04/12/22 09:14 04/14/22 04/15/22 04/15/22 22:59 06:59 14:59 Intake Total 210 / 510 120 / 120 Output Total 125 / 775 350 / 1125 Balance 85 / -265 -350 / -615 120 / 120 Weight last 48 hrs Weight 91.172 kg Weight 91.172 kg Physical Exam Narrative: Clinical signs of fluid overload improving We will S1-S2 Abdomen soft Signs of CHF improving Awake and alert Nonfocal neuro exam Right arm limited range of motion Family at the bedside Awake and alert Currently on 5 L nasal cannula Urinary Catheter Management: Bonner: Cath Placed During This Visit: yes Reason for Continuing Indwelling Catheter: Accurate Measurement of Urinary Output in Critically Ill Patients Urinary Catheter Date of Insertion: 04/10/22 Urinary Catheter Time of Insertion: 02:14 Data : 04/15/22 04:17 04/15/22 04:17 Micro: Microbiology 04/09/22 22:50 Blood Culture - Final Blood NO GROWTH AFTER 5 DAYS 04/09/22 22:46 Blood Culture - Final Blood NO GROWTH AFTER 5 DAYS A&P Assessment and plan (1) Leukocytosis: (2) Sepsis: (3) LBBB (left bundle branch block): (4) Atrial fibrillation with RVR: (5) Decompensated heart failure: (6) Hypothyroidism: (7) Bilateral pleural effusion: (8) Respiratory failure with hypoxia and hypercapnia: (9) Diabetes: (10) Hypertension: Plan A. fib RVR improving with amiodarone and digoxin Heart rate is current well controlled Will get Eliquis at the time of discharge Systolic congestive heart failure exacerbation: Signs of fluid overload imp roving with 40 p.o. Lasix Sepsis resolved Discontinue antibiotic Right arm swelling improving Acute on chronic kidney disease improved with diuresis Acute on chronic hypoxia currently doing well on 5 L cannula On dysphagia diet Awaiting placement Continue PT OT and ST on daily basis DNR/DNI Attestations Medical Necessity Statement*: awaiting placement Time Spent in Patient Care: 40 Coding Level of Care Code Acute Endless Track Vehicle Mechanic for Chg Fwd Diagnoses Leukocytosis D72.829 Sepsis A41.9 LBBB (left bundle branch block) I44.7 Atrial fibrillation with RVR I48.91 Decompensated heart failure I50.9 Hypothyroidism E03.9 Bilateral pleural effusion J90 Respiratory failure with hypoxia and hypercapnia J96.91; J96.92 Diabetes E11.9 Hypertension I10
[2022-04-15] MEDS: ondansetron 2 mg/ML SDV 2 mL 4 MG IVP (09:53)
[2022-04-15] MEDS: insulin glargine 100 units/1 mL 20 UNIT SUBCUT (10:14)
[2022-04-15] MEDS: ALPRAZolam 0.5 mg Tablet 0.25 MG PO (10:14)
[2022-04-15 11:19] LABS: Glucose Point of Care 126 mg/dL (70-110)
[2022-04-15 12:04] LABS: SARS Covid-2 Antigen negative (Negative)
--- NOTE | 2022-04-15 13:36 | PC.NURSE ---
report called to loren
[2023-04-13 08:42] LABS: ABG PCO2 54.3 mmHg (35-45); ABG PH Result 7.43 (7.35-7.45); Base Excess ABG 10.3 mmol/L (-2.0-2.0); Blood Gas Allen Test POS; HCO3 ABG 36.3 mmol/L (22-26); PO2 ABG 73.2 mmHg (80.0-100.0)
[2023-04-13 08:43] LABS: Arterial Blood Gas Hematocrit 35.2 % (37-47); Blood Gas Sample Site Radial, right; Blood Gas Sample Type Arterial
== END 2022-04-15 14:30 | disposition skilled nursing facility (03) | DRG 871 ==
LOC: ER 21:08 → ICU 04-10 00:47 → MEDSURG 04-14 23:51
PROVIDERS: Admitting Provider Internal Medicine; Emergency Provider Emergency Medicine; PCP Family Medicine; Visit Provider Internal Medicine
DX: A41.9 Sepsis, unspecified organism (principal); I50.33 Acute on chronic diastolic (congestive) heart failure; J96.22 Acute and chronic respiratory failure with hypercapnia; J96.21 Acute and chronic respiratory failure with hypoxia; J18.9 Pneumonia, unspecified organism; I48.20 Chronic atrial fibrillation, unspecified; J90 Pleural effusion, not elsewhere classified; I31.39 Other pericardial effusion (noninflammatory); N17.9 Acute kidney failure, unspecified; I11.0 Hypertensive heart disease with heart failure; E11.42 Type 2 diabetes mellitus with diabetic polyneuropathy; K21.9 Gastro-esophageal reflux disease without esophagitis; E03.9 Hypothyroidism, unspecified; I44.7 Left bundle-branch block, unspecified; Z85.42 Personal history of malignant neoplasm of other parts of uterus; Z79.51 Long term (current) use of inhaled steroids; R13.10 Dysphagia, unspecified; Z66 Do not resuscitate; M79.89 Other specified soft tissue disorders
CPT/HCPCS: 32555; 36415; 36416; 36600; 51702; 71045; 71250; 71275; 74176; 80048; 80051; 80053; 80061; 80503; 81001; 82330; 82803; 82805; 82945; 82962; 83036; 83605; 83615; 83735; 83880; 83986; 84100; 84145; 84157; 84443; 84484; 85007; 85025; 85378; 85610; 85730; 87040; 87086; 87426; 88108; 88184; 88185; 89050; 92523; 92524; 92610; 93005; 93306; 93970; 93971; 94640; 94660; 96365; 96366; 96372; 97110; 97161; 97167; 97530; 97535; 99285; J0282; J0456; J0696; J1160; J1650; J1815; J1940; J2405; J3480; J3490; J7030; J7040; J7050; J7060; J7614; J7644; J9352; Q0144; Q9967

== ENCOUNTER → 2022-07-20 11:58 | Outpatient (BNVA) | payer MEDICARE, OTHER, SELFPAY | PROVIDERS: PCP Family Medicine; Visit Provider Internal Medicine | DX: I48.91 Unspecified atrial fibrillation (principal); Z79.01 Long term (current) use of anticoagulants; I10 Essential (primary) hypertension; E11.9 Type 2 diabetes mellitus without complications; Z79.84 Long term (current) use of oral hypoglycemic drugs | CPT/HCPCS: 99204 ==

== ENCOUNTER 2022-09-22 11:42 | Outpatient (CLI) | payer MEDICARE, OTHER, SELFPAY ==
--- NOTE | 2022-09-22 12:45 | USCV_ITS ---
Young, Lauren Age: 87 Gender: F : 1935 Exam Date: 09/22/2022 12:36 Ordering Phys: Kenny Palumbo M.D ([email or web address]) Technologist: Nisha Mascorro Exam Location: [facility] – [place] Indication: sob BP: 144 / 76 HR: 141 Rhythm: Sinus Technical Quality: Fair MEASUREMENTS (Male / Female) Normal Values 2D ECHO LV Diastolic Diameter PLAX 2.8 cm 4.2 - 5.9 / 3.9 - 5.3 cm LV Systolic Diameter PLAX 2.7 cm IVS Diastolic Thickness 1.3 cm 0.6 - 1.0 / 0.6 - 0.9 cm IVS Systolic Thickness 2.4 cm LVPW Diastolic Thickness 3.3 cm 0.6 - 1.0 / 0.6 - 0.9 cm LVPW Systolic Thickness 1.9 cm LVOT Diameter 2.0 cm LV Ejection Fraction 2D Teich 64.0 % LV Ejection Fraction MOD 2C 50.7 % LV Ejection Fraction 2C AL 50.0 % LA Diameter 2.3 cm LA Width 2.7 cm LA Height 3.5 cm RA Width 4.2 cm RA Height 2.4 cm Aorta at Sinotubular Diameter 3.3 cm IVC Diameter 2.0 cm M-MODE MV E Point Septal Separation 0.7 cm DOPPLER AV Peak Velocity 175.0 cm/s LVOT Peak Velocity 72.0 cm/s AV Area Cont Eq vti 1.2 cm squared AV Area Cont Eq pk 1.3 cm squared MV Peak Velocity 110.0 cm/s MV Area PHT 3.7 cm squared Mitral E to A Ratio 0.8 MV E' Velocity 88.0 cm/s TR Peak Velocity 250.3 cm/s TR Peak Gradient 25.1 mmHg Right Atrial Pressure 3.0 mmHg Pulmonary Artery Systolic Pressu 28.1 mmHg PV Peak Velocity 75.0 cm/s RV Acceleration Time 0.2 s RV Ejection Time 0.3 s RV AcT/ET 0.6 FINDINGS Left Ventricle Normal left ventricular size, systolic function and wall thickness, with no regional wall motion abnormalities. Normal left ventricular wall thickness. Left ventricular ejection fraction is estimated at 50 %. Low normal left ventricular systolic function. Grade I/IV diastolic dysfunction (abnormal relaxation filling pattern), normal to mildly elevated filling pressures. Right Ventricle The right ventricle is normal in size and function. Right Atrium The right atrium is normal in size. Left Atrium The left atrium is normal in size. Mitral Valve Structurally normal mitral valve without significant stenosis or prolapse. There is no mitral regurgitation. Aortic Valve Severe aortic valve calcification. Mild aortic valve stenosis. Moderate aortic valve stenosis, mean gradient 7 mmHg, LUZ 1.2 cm squared. Trace aortic valve regurgitation. Tricuspid Valve Structurally normal tricuspid valve without significant stenosis, trace regurgitation. Pulmonary artery systolic pressure is normal. Pulmonic Valve Structurally normal pulmonic valve without significant stenosis. There is no pulmonic regurgitation. Pericardium Normal pericardium without effusion. Aorta Normal ascending aorta dimension. IVC The inferior vena cava appears normal. CONCLUSIONS 1-Normal left ventricular size, systolic function and wall thickness, with no regional wall motion abnormalities. Normal left ventricular wall thickness. Left ventricular ejection fraction is estimated at 50 %. Low normal left ventricular systolic function. Grade I/IV diastolic dysfunction (abnormal relaxation filling pattern), normal to mildly elevated filling pressures. 2-Severe aortic valve calcification. Mild aortic valve stenosis. Moderate aortic valve stenosis, mean gradient 7 mmHg, LUZ 1.2 cm squared. Trace aortic valve regurgitation. 3-There is no pericardial effusion. Jamari Guillen MD (Electronically Signed) Final Date: 22 September 2022 18:39 S
== END 2022-09-22 11:43 | disposition home or self-care (01) ==
PROVIDERS: PCP Family Medicine; Visit Provider Internal Medicine
DX: R06.02 Shortness of breath (principal); R07.9 Chest pain, unspecified; I35.0 Nonrheumatic aortic (valve) stenosis
CPT/HCPCS: 93306

== ENCOUNTER → 2022-12-09 10:50 | Outpatient (BNVA) | payer MEDICARE, OTHER, SELFPAY | PROVIDERS: PCP Family Medicine; Visit Provider Nurse Practitioner Family | DX: L57.0 Actinic keratosis (principal); L57.8 Other skin changes due to chronic exposure to nonionizing radiation; L81.4 Other melanin hyperpigmentation; S90.122A Contusion of left lesser toe(s) without damage to nail, initial encounter; X58.XXXA Exposure to other specified factors, initial encounter; D22.5 Melanocytic nevi of trunk; Z71.89 Other specified counseling; L85.3 Xerosis cutis | CPT/HCPCS: 17000; 17003; 99213 ==

== ENCOUNTER → 2022-12-30 08:55 | Outpatient (BNVA) | payer MEDICARE, OTHER, SELFPAY | PROVIDERS: PCP Family Medicine; Visit Provider Specialist | DX: I48.91 Unspecified atrial fibrillation (principal); I10 Essential (primary) hypertension; E11.9 Type 2 diabetes mellitus without complications; Z79.01 Long term (current) use of anticoagulants; Z79.84 Long term (current) use of oral hypoglycemic drugs | CPT/HCPCS: 99214 ==

== ENCOUNTER → 2023-06-13 10:27 | Outpatient (BNVA) | payer MEDICARE, OTHER, SELFPAY | PROVIDERS: PCP Family Medicine; Visit Provider Nurse Practitioner Family | DX: L57.8 Other skin changes due to chronic exposure to nonionizing radiation (principal); L81.4 Other melanin hyperpigmentation; D22.4 Melanocytic nevi of scalp and neck; L57.0 Actinic keratosis | CPT/HCPCS: 17000; 99213 ==

== ENCOUNTER 2023-08-18 09:23 | Outpatient (CLI) | payer MEDICARE, OTHER, SELFPAY ==
--- NOTE | 2023-08-18 09:28 | USCV_ITS ---
Young, Lauren Age: 88 Gender: F : 1935 Exam Date: 08/18/2023 08:42 Ordering Phys: Shaina Reed Technologist: Exam Location: [facility] [place]ication: bilat edema more on rt PROCEDURES: The venous duplex Doppler examination of both lower extremities was performed in the standard fashion. The following venous structures were evaluated: common femoral vein, profunda vein, proximal portion of the greater saphenous vein, superficial femoral vein, and the popliteal vein. In addition, the posterior tibial and peroneal trunk were evaluated. FINDINGS: Normal 2-D Doppler and augmentation and compressibility throughout the lower extremity venous structures. Additional imaging through the proximal calf veins also reveals no thrombus. Limited evaluation of the greater saphenous vein is patent with no thrombus. CONCLUSIONS No evidence of right lower extremity DVT. No evidence of left lower extremity DVT. Gus Romo MD (Electronically Signed) Final Date: 18 August 2023 11:09 S
== END 2023-08-18 09:24 | disposition home or self-care (01) ==
LOC: RAD 09:23
PROVIDERS: PCP Family Medicine; Visit Provider Nurse Practitioner Family
DX: M79.89 Other specified soft tissue disorders (principal)
CPT/HCPCS: 93970

== ENCOUNTER 2023-11-16 10:39 | Outpatient (CLI) | payer MEDICARE, OTHER, SELFPAY ==
--- NOTE | 2023-11-16 11:27 | XRR_ITS ---
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 Views: 2 views. COMPARISON: 1[place] [id number] 04/12/2022 12:24 PM 2. CR XR chest 1V portable [id number] 04/12/2022 10:59 AM FINDINGS: Lungs: Mild left lower lung linear atelectasis versus scarring. No consolidation. Pleural spaces: [id number] right pleural effusion. No pneumothorax. Heart/Mediastinum: Unremarkable. No cardiomegaly. Vasculature: Aortic atherosclerotic calcification. Bones/joints: Degenerative changes along the spine. Reverse right shoulder arthroplasty. XR/XR chest 2V* [id number] IMPRESSION: [id number] right pleural effusion.
== END 2023-11-16 10:40 | disposition home or self-care (01) ==
LOC: RAD 10:41
PROVIDERS: PCP Family Medicine; Visit Provider Nurse Practitioner Family
DX: I50.22 Chronic systolic (congestive) heart failure (principal); R05.8 Other specified cough; J90 Pleural effusion, not elsewhere classified
CPT/HCPCS: 71046

== ENCOUNTER → 2023-12-13 09:45 | Outpatient (BNVA) | payer MEDICARE, OTHER, SELFPAY | PROVIDERS: PCP Family Medicine; Visit Provider Nurse Practitioner Family | DX: D48.5 Neoplasm of uncertain behavior of skin (principal); L57.0 Actinic keratosis; I87.2 Venous insufficiency (chronic) (peripheral); M79.3 Panniculitis, unspecified; L57.8 Other skin changes due to chronic exposure to nonionizing radiation | CPT/HCPCS: 11102; 17000; 99214 ==

== ENCOUNTER → 2024-04-04 09:29 | Outpatient (BNVA) | payer MEDICARE, OTHER, SELFPAY | PROVIDERS: PCP Family Medicine; Visit Provider Nurse Practitioner Family | DX: Z09 Encounter for follow-up examination after completed treatment for conditions other than malignant neoplasm (principal); L57.0 Actinic keratosis; L85.3 Xerosis cutis; M79.3 Panniculitis, unspecified; L81.4 Other melanin hyperpigmentation | CPT/HCPCS: 17000; 99213 ==

== ENCOUNTER 2024-09-07 09:28 | Outpatient (CLI) | payer MEDICARE, OTHER, SELFPAY ==
[2024-09-07 10:22] LABS: Basophils % 0.2 %; Eosinophils # 0.1 10^3/uL (0.0-0.8); Eosinophils % 0.6 %; Hematocrit 32.6 % (36-47); Lymphocytes # 1.5 10^3/uL (0.8-4.8); Lymphocytes % 14.7 %; Mean Corpuscular Hemoglobin 28.7 pg (27-33); Mean Corpuscular Volume 92.6 fl (85-98); Mean Platelet Volume 10.9 fL (7.4-10.4); Monocytes # 2.7 10^3/uL (0.2-0.9); Monocytes % 26.9 %; Neutrophils # 5.54 10^3/uL (1.8-7.7); Neutrophils % 56.4 %; Nucleated Red Blood Cells % 0 %; Platelet Count 179 10^3/cmm (157-399); Red Blood Count 3.52 10^6/uL (3.85-5.65); Red Cell Distribution Width 14.3 % (12.1-15.1); White Blood Count 9.84 10^3/uL (3.29-11.43)
[2024-09-07 10:45] LABS: Calcium 8.2 mg/dL (8.5-10.5)
[2024-09-07 10:46] LABS: Creatinine Urine, Random 124 mg/dL (28-217); Microalbum Creatinine Ratio Ur 32 mg/dL (0-20); Microalbumin Random Urine 4 ug/dL (0-20)
[2024-09-07 10:46] LABS: Albumin Level 3.5 g/dL (3.5-5.2); Anion Gap 16.5 (5-19); Blood Urea Nitrogen 38 mg/dL (8-23); Calcium 8.2 mg/dL (8.5-10.5); Carbon Dioxide 26 mmol/L (22-29); Chloride 98 mmol/L (98-107); Glucose 91 mg/dL (65-115); Phosphorus 4.6 mg/dL (2.5-4.5); Potassium 4.5 mmol/L (3.5-5.1); Sodium 136 mmol/L (136-145)
[2024-09-07 10:52] LABS: Parathyroid Hormone 37.9 pg/mL (15-65)
[2024-09-07 11:02] LABS: 25 Hydroxy Vitamin D 67 ng/mL (30-100)
== END 2024-09-07 09:29 | disposition home or self-care (01) ==
LOC: LAB 09:42
PROVIDERS: PCP Family Medicine; Visit Provider Registered Nurse
DX: N18.32 Chronic kidney disease, stage 3b (principal)
CPT/HCPCS: 36415; 80069; 82044; 82306; 82310; 83970; 85025

== ENCOUNTER → 2024-09-26 09:33 | Outpatient (BNVA) | payer MEDICARE, OTHER, SELFPAY | PROVIDERS: PCP Family Medicine; Visit Provider Nurse Practitioner Family | DX: L81.4 Other melanin hyperpigmentation (principal); L57.8 Other skin changes due to chronic exposure to nonionizing radiation; X32.XXXA Exposure to sunlight, initial encounter; L57.0 Actinic keratosis; Z08 Encounter for follow-up examination after completed treatment for malignant neoplasm; Z85.828 Personal history of other malignant neoplasm of skin; L82.0 Inflamed seborrheic keratosis; L29.89 Other pruritus; L53.8 Other specified erythematous conditions | CPT/HCPCS: 17000; 17110; 99213 ==

== ENCOUNTER 2025-03-12 07:59 | Outpatient (CLI) | payer MEDICARE, OTHER, SELFPAY ==
[2025-03-12 09:09] LABS: Hematocrit 31.3 % (36-47); Hemoglobin 9.50 g/dL (11.27-16.99); Mean Corpuscular HGB Conc 30.4 g/dL (30-55); Mean Corpuscular Hemoglobin 28.8 pg (27-33); Mean Corpuscular Volume 94.8 fl (85-98); Nucleated Red Blood Cells % 0 %; Platelet Count 194 10^3/cmm (157-399); Red Blood Count 3.30 10^6/uL (3.85-5.65); White Blood Count 12.59 10^3/uL (3.29-11.43)
[2025-03-12 09:27] LABS: Albumin Level 3.6 g/dL (3.5-5.2); Anion Gap 16.8 (5-19); Blood Urea Nitrogen 40 mg/dL (8-23); Calcium 7.7 mg/dL (8.5-10.5); Carbon Dioxide 29 mmol/L (22-29); Chloride 97 mmol/L (98-107); Glucose 139 mg/dL (65-115); Potassium 4.8 mmol/L (3.5-5.1); Sodium 138 mmol/L (136-145)
[2025-03-12 09:46] LABS: Calcium 7.5 mg/dL (8.5-10.5)
[2025-03-12 09:53] LABS: Creatinine Urine, Random 156 mg/dL (28-217); Microalbum Creatinine Ratio Ur 38 mg/dL (0-20)
== END 2025-03-12 08:00 | disposition home or self-care (01) ==
PROVIDERS: PCP Family Medicine; Visit Provider Registered Nurse
DX: N18.4 Chronic kidney disease, stage 4 (severe) (principal)
CPT/HCPCS: 36415; 80069; 82044; 82310; 83970; 85025

== ENCOUNTER → 2025-04-10 13:06 | Outpatient (BNVA) | payer MEDICARE, OTHER, SELFPAY | PROVIDERS: PCP Family Medicine; Visit Provider Nurse Practitioner Family | DX: M79.3 Panniculitis, unspecified (principal); L57.8 Other skin changes due to chronic exposure to nonionizing radiation; X32.XXXA Exposure to sunlight, initial encounter; L57.0 Actinic keratosis; L81.4 Other melanin hyperpigmentation; L82.1 Other seborrheic keratosis; Z08 Encounter for follow-up examination after completed treatment for malignant neoplasm; Z85.828 Personal history of other malignant neoplasm of skin; L82.0 Inflamed seborrheic keratosis; L29.89 Other pruritus | CPT/HCPCS: 17000; 17110; 99213 ==